=== PATIENT | female | born 1975 | race Caucasian/White ===

== ENCOUNTER → 2016-09-02 | Outpatient (CLI) | payer OTHER ==
--- NOTE | 2016-09-02 08:42 | XR ---
EXAMINATION TYPE: XR chest 2V DATE OF EXAM: 09/02/2016 8:38 AM COMPARISON: NONE TECHNIQUE: PA and lateral views submitted. HISTORY: Cough, pneumonia FINDINGS: The lungs are clear and there is no pneumothorax, pleural effusion, or focal pneumonia. IMPRESSION: 1. No acute process.
== END | disposition home or self-care (01) ==
LOC: RADXRMAIN 08:28
PROVIDERS: ATTEND Family Medicine
DX: J18.1 Lobar pneumonia, unspecified organism (principal)
CPT/HCPCS: 71020

== ENCOUNTER → 2016-10-10 | Outpatient (CLI) | payer OTHER ==
[2016-10-10 12:13] LABS: ALT 34 U/L (9-52); AST 44 U/L (14-36); Cholesterol 192 mg/dL (<200); Creatine Kinase 71 U/L (30-135); HDL Cholesterol 37 mg/dL (40-60); Triglycerides 345 mg/dL (<150)
== END | disposition home or self-care (01) ==
LOC: LABWHC1 11:21
PROVIDERS: ATTEND Nurse Practitioner Family
DX: E78.2 Mixed hyperlipidemia (principal)
CPT/HCPCS: 36415; 80061; 82550; 84450; 84460

== ENCOUNTER → 2017-01-30 | Outpatient (CLI) | payer OTHER | LOC: LABWHC1 09:10 | PROVIDERS: ATTEND Internal Medicine Endocrinology, Diabetes & Metabolism | DX: C73 Malignant neoplasm of thyroid gland (principal); E89.0 Postprocedural hypothyroidism | CPT/HCPCS: 36415; 84432; 84443; 86800 ==

== ENCOUNTER → 2017-04-11 | Outpatient (CLI) | payer OTHER ==
[2017-04-11 10:16] LABS: Basophils % (A) 0 %; CH 28.5; CHCM 31.8; Eosinophils # (A) 0.2 k/uL (0-0.7); Eosinophils % (A) 2 %; HCT 42.4 % (34.0-46.0); HDW 2.44; HGB 13.7 gm/dL (11.4-16.0); Luc # (Auto) 0.13; Luc % (Auto) 2; Lymphocytes # (A) 2.8 k/uL (1.0-4.8); Lymphocytes % (A) 31 %; MCH 29.1 pg (25.0-35.0); MCHC 32.2 g/dL (31.0-37.0); MCV 90.4 fL (80.0-100.0); Mean Platelet Volume 7.4; Monocytes # (A) 0.3 k/uL (0-1.0); Monocytes % (A) 3 %; Neutrophils # (A) 5.4 k/uL (1.3-7.7); Neutrophils % (A) 62 %; RDW 13.9 % (11.5-15.5); WBC 8.8 k/uL (3.8-10.6); WBC (Perox) 9.06
[2017-04-11 10:42] LABS: ALT 33 U/L (9-52); AST 37 U/L (14-36); Alkaline Phosphatase 90 U/L (38-126); Anion Gap 12 mmol/L; Blood Urea Nitrogen 11 mg/dL (7-17); Calcium 9.5 mg/dL (8.4-10.2); Carbon Dioxide 25 mmol/L (22-30); Chloride 104 mmol/L (98-107); Cholesterol 140 mg/dL (<200); Glucose 95 mg/dL (74-99); HDL Cholesterol 38 mg/dL (40-60); Non-African American GFR(MDRD) >60 (>60 ml/min/1.73 sqM); Potassium 4.9 mmol/L (3.5-5.1); Sodium 141 mmol/L (137-145); Total Bilirubin 0.5 mg/dL (0.2-1.3); Total Protein 7.4 g/dL (6.3-8.2)
== END | disposition home or self-care (01) ==
LOC: LABWHC1 09:19
PROVIDERS: ATTEND Nurse Practitioner Family
DX: E78.2 Mixed hyperlipidemia (principal); I10 Essential (primary) hypertension
CPT/HCPCS: 36415; 80053; 80061; 85025

== ENCOUNTER → 2017-04-28 | Outpatient (CLI) | payer OTHER ==
--- NOTE | 2017-04-28 14:36 | US ---
EXAMINATION TYPE: US thyroid st tissue head/neck DATE OF EXAM: 04/28/2017 COMPARISON: NONE CLINICAL HISTORY: C73 Malignant neoplasm of thyroid gland. Patient states having thyroid cancer in 20 08, complete thyroidectomy GLAND SIZE: Right Lobe: Surgically absent Left Lobe: Surgically absent Isthmus Thickness: Surgically absent Bilateral neck scanned, no evidence of lymphadenopathy. No abnormality identified IMPRESSION: No residual thyroid tissue or adenopathy appreciated.
== END ==
LOC: RADUSWWP 13:30
PROVIDERS: ATTEND Internal Medicine Endocrinology, Diabetes & Metabolism
DX: C73 Malignant neoplasm of thyroid gland (principal)
CPT/HCPCS: 76536

== ENCOUNTER → 2017-05-13 | Outpatient (CLI) | payer OTHER | END | disposition home or self-care (01) | LOC: LABWHC1 08:25 | PROVIDERS: ATTEND Internal Medicine Endocrinology, Diabetes & Metabolism | DX: C73 Malignant neoplasm of thyroid gland (principal) | CPT/HCPCS: 36415; 84443 ==

== ENCOUNTER → 2017-07-03 | Outpatient (CLI) | payer OTHER | END | disposition home or self-care (01) | LOC: LABWHC1 08:51 | PROVIDERS: ATTEND Internal Medicine Endocrinology, Diabetes & Metabolism | DX: C73 Malignant neoplasm of thyroid gland (principal) | CPT/HCPCS: 36415; 84443 ==

== ENCOUNTER → 2017-08-20 | Outpatient (CLI) | payer OTHER ==
--- NOTE | 2017-08-21 13:50 | MM ---
Reason for exam: screening (asymptomatic). Last mammogram was performed 1 year and 3 months ago. History: Patient history of other cancer. Family history of breast cancer in mother at age 58. Taking hormonal contraceptives for 18 years. Physical Findings: A clinical breast exam by your physician is recommended on an annual basis and results should be correlated with mammographic findings. MG Screening Mammo w CAD Bilateral CC and MLO view(s) were taken. Prior study comparison: May 24, 2016, bilateral MG screening mammo w CAD. May 23, 2015, bilateral MG screening mammo w CAD. The breast tissue is almost entirely fat. No significant changes when compared with prior studies. ASSESSMENT: Negative, BI-RAD 1 RECOMMENDATION: Routine screening mammogram of both breasts in 1 year.
== END | disposition home or self-care (01) ==
LOC: RADMAMWWP 08:55
PROVIDERS: ATTEND Obstetrics & Gynecology
DX: Z12.31 Encounter for screening mammogram for malignant neoplasm of breast (principal); Z80.3 Family history of malignant neoplasm of breast
CPT/HCPCS: 77067

== ENCOUNTER → 2017-10-06 | Outpatient (CLI) | payer OTHER ==
[2017-10-06 18:17] LABS: Thyroglobulin <0.20 ng/mL (1.60-59.90)
== END ==
LOC: LABWHC1 09:11
PROVIDERS: ATTEND Internal Medicine Endocrinology, Diabetes & Metabolism
DX: C73 Malignant neoplasm of thyroid gland (principal)
CPT/HCPCS: 36415; 84432; 84443; 86800

== ENCOUNTER → 2017-10-16 | Outpatient (CLI) | payer OTHER ==
--- NOTE | 2017-10-16 10:55 | ECHOF ---
Referral Reason:I10 Hypertention,R01.1 Murmur,R07.9 Chest pain MEASUREMENTS -------- HEIGHT: 167.6 cm WEIGHT: 105.2 kg BP: 145/82 RVIDd: 2.6 cm (< 3.3) IVSd: 0.8 cm (0.6 - 1.1) LVIDd: 4.8 cm (3.9 - 5.3) LVPWd: 1.0 cm (0.6 - 1.1) IVSs: 1.4 cm LVIDs: 3.1 cm LVPWs: 1.3 cm LAESV Index (A-L): 22.68 ml/m Ao Diam: 2.7 cm (2.0 - 3.7) AV Cusp: 1.3 cm (1.5 - 2.6) LA Diam: 3.0 cm (2.7 - 3.8) MV EXCURSION: 10.325 mm (> 18.000) MV EF SLOPE: 95 mm/s (70 - 150) EPSS: 0.8 cm MV E Baron: 0.80 m/s MV DecT: 397 ms MV A Baron: 1.04 m/s MV E/A Ratio: 0.78 RAP: 5.00 mmHg RVSP: 10.74 mmHg FINDINGS -------- Sinus rhythm. This was a technically adequate study. The left ventricular size is normal. Left ventricular wall thickness is normal. Overall left vent ricular systolic function is normal with, an EF between 55 - 60 %. The right ventricle is normal in size and function. Normal LA size by volume 22+/-6 ml/m2. The right atrium is normal in size. The aortic valve is trileaflet, and appears structurally normal. No aortic stenosis or regurgitation. The mitral valve is normal. There is trace to mild mitral regurgitation. Trace tricuspid regurgitation present. Right ventricular systolic pressure is normal at < 35 mmHg. There is no evidence of pulmonary hypertension. The pulmonic valve is normal. The aortic root size is normal. Normal inferior vena cava with normal inspiratory collapse consistent with estimated right atrial pre ssure of 5 mmHg. There is no pericardial effusion. CONCLUSIONS -------- 1. Sinus rhythm. 2. This was a technically adequate study. 3. The left ventricular size is normal. 4. Left ventricular wall thickness is normal. 5. Overall left ventricular systolic function is normal with, an EF between 55 - 60 %. 6. Normal LA size by volume 22+/-6 ml/m2. 7. The aortic valve is trileaflet, and appears structurally normal. No aortic stenosis or regurgitati on. 8. There is trace to mild mitral regurgitation. 9. Trace tricuspid regurgitation present. 10. Right ventricular systolic pressure is normal at < 35 mmHg. 11. There is no evidence of pulmonary hypertension. 12. The aortic root size is normal. 13. There is no pericardial effusion. GRAINING OPERATOR: Milan Dent RDCS
== END | disposition home or self-care (01) ==
LOC: RADECHMAIN 08:18 → MERGE 08:30
PROVIDERS: ATTEND Family Medicine
DX: R01.1 Cardiac murmur, unspecified (principal); I10 Essential (primary) hypertension; R07.9 Chest pain, unspecified
CPT/HCPCS: 93306

== ENCOUNTER 2018-01-13 05:17 | Emergency (ER) | payer OTHER ==
[2018-01-13 05:23] VITALS: RESP 18
[2018-01-13 05:56] LABS: Basophils % (A) 0 %; Eosinophils # (A) 0.1 k/uL (0-0.7); Eosinophils % (A) 1 %; HCT 42.8 % (34.0-46.0); HGB 14.3 gm/dL (11.4-16.0); Lymphocytes # (A) 1.7 k/uL (1.0-4.8); Lymphocytes % (A) 10 %; MCH 28.4 pg (25.0-35.0); MCHC 33.5 g/dL (31.0-37.0); MCV 84.9 fL (80.0-100.0); Mean Platelet Volume 7.4; Monocytes # (A) 0.5 k/uL (0-1.0); Monocytes % (A) 3 %; Neutrophils # (A) 14.9 k/uL (1.3-7.7); Neutrophils % (A) 86 %; Platelet Count 302 k/uL (150-450); RBC 5.04 m/uL (3.80-5.40); RDW 13.9 % (11.5-15.5); WBC 17.3 k/uL (3.8-10.6)
[2018-01-13] MEDS ORDERED: SODIUM CHLORIDE 0.9% 500 ML IV ONE (06:08)
[2018-01-13] MEDS ORDERED: SODIUM CHLORIDE 0.9% 1,000 ML IV ONE (06:08)
[2018-01-13] MEDS ORDERED: DICYCLOMINE 20 MG TAB PO STA (06:08)
[2018-01-13] MEDS ORDERED: ONDANSETRON 4 MG/2 ML VIAL IVP STA (06:09)
[2018-01-13 06:10] LABS: ALT 23 U/L (9-52); AST 28 U/L (14-36); Albumin 4.3 g/dL (3.5-5.0); Alkaline Phosphatase 99 U/L (38-126); Amylase 41 U/L (30-110); Anion Gap 16 mmol/L; Blood Urea Nitrogen 12 mg/dL (7-17); Carbon Dioxide 19 mmol/L (22-30); Chloride 106 mmol/L (98-107); Glucose 134 mg/dL (74-99); Lipase 124 U/L (23-300); Potassium 4.3 mmol/L (3.5-5.1); Sodium 141 mmol/L (137-145); Total Bilirubin 0.5 mg/dL (0.2-1.3); Total Protein 7.1 g/dL (6.3-8.2)
--- NOTE | 2018-01-13 06:47 | ED ---
Abdominal Pain HPI - General Chief Complaint: Abdominal Pain Stated Complaint: Abdominal Pain Time Seen by Provider: 01/13/18 06:01 Source: patient Mode of arrival: ambulatory Limitations: no limitations - History of Present Illness Initial Comments: 42-year-old female presents emergency Department chief complaint abdominal pain , diarrhea that started at 11 PM last night. Patient states she's had 6-7 episodes of diarrhea she states that his been blood and mucus. Patient denies any no fever or chills. She has no history of history of diverticulitis or colitis. Patient does have history of IBS. Patient has no dysuria no hematuria and no urinary frequency. Patient states she did have some episodes of nausea and vomiting. Patient has no current chest pain, shortness breath, headache, dizziness, back pain, flank pain. - Related Data Home Medications Medication Instructions Recorded Confirmed Levothyroxine Sodium [Synthroid] 100 mcg PO BID 02/21/16 02/21/16 Lisinopril [Prinivil] 20 mg PO DAILY 02/21/16 02/21/16 Diclofenac Sodium [Voltaren] 50 mg PO BID 01/13/18 01/13/18 Dicyclomine [Bentyl] 10 mg PO QID 01/13/18 01/13/18 Orsythia 1 tab PO DAILY 01/13/18 01/13/18 PARoxetine HCL [Paxil] 30 mg PO DAILY 01/13/18 01/13/18 Previous Rx's Medication Instructions Recorded Ciprofloxacin HCl [Cipro] 500 mg PO Q12HR #20 tablet 01/13/18 Ondansetron Odt [Zofran Odt] 4 mg PO Q8HR PRN #10 tab 01/13/18 metroNIDAZOLE [Flagyl] 500 mg PO TID #30 tab 01/13/18 Allergies Allergy/AdvReac Type Severity Reaction Status Date / Time No Known Allergies Allergy Verified 01/13/18 08:00 Review of Systems ROS Statement: Those systems with pertinent positive or pertinent negative responses have been documented in the HPI. ROS Other: All systems not noted in ROS Statement are negative. Past Medical History Past Medical History: Cancer, Hyperlipidemia, Hypertension, Thyroid Disorder Additional Past Medical History / Comment(s): Anxiety, History of Any Multi-Drug Resistant Organisms: None Reported Additional Past Surgical History / Comment(s): thyroidectomy, carpal tunnel. Past Psychological History: No Psychological Hx Reported Smoking Status: Never smoker Past Alcohol Use History: None Reported Past Drug Use History: None Reported General Exam Limitations: no limitations General appearance: alert, in no apparent distress Head exam: Present: atraumatic, normocephalic, normal inspection Respiratory exam: Present: normal lung sounds bilaterally. Absent: respiratory distress, wheezes, rales, rhonchi, stridor Cardiovascular Exam: Present: regular rate, normal rhythm, normal heart sounds. Absent: systolic murmur, diastolic murmur, rubs, gallop, clicks GI/Abdominal exam: Present: soft, tenderness (Moderate epigastric and left lower quadrant tenderness), normal bowel sounds. Absent: distended, guarding, rebound, rigid Back exam: Absent: CVA tenderness (R), CVA tenderness (L) Course Vital Signs 01/13/18 05:18 Temperature 98.1 F Pulse Rate 82 Respiratory 18 Rate Blood Pressure 123/80 O2 Sat by Pulse 95 Oximetry - Reevaluation(s) Reevaluation #1: 01/13/18 08:01 Patient was updated on lab results and reevaluated. Patient has improved after antiemetics and fluids. Medical Decision Making - Medical Decision Making 42-year-old female presented for abdominal pain, diarrhea. Patient's found to have enterocolitis on CT consider infectious versus inflammatory. Patient will be treated for infectious colitis with Cipro Flagyl. Patient will be advised to follow clear liquid diet and progress as tolerated and to follow with Dr. Kaba. Return parameters were discussed. agrees to plan - Lab Data Result diagrams: 01/13/18 05:38 01/13/18 05:38 Lab Results 01/13/18 01/13/18 01/13/18 Range/Units 04:47 04:47 05:38 WBC (3.8-10.6) k/uL RBC (3.80-5.40) m/uL Hgb (11.4-16.0) gm/dL Hct (34.0-46.0) % MCV (80.0-100.0) fL MCH (25.0-35.0) pg MCHC (31.0-37.0) g/dL RDW (11.5-15.5) % Plt Count (150-450) k/uL Neutrophils % % Lymphocytes % % Monocytes % % Eosinophils % % Basophils % % Neutrophils # (1.3-7.7) k/uL Lymphocytes # (1.0-4.8) k/uL Monocytes # (0-1.0) k/uL Eosinophils # (0-0.7) k/uL Basophils # (0-0.2) k/uL Sodium 141 (137-145) mmol/L Potassium 4.3 (3.5-5.1) mmol/L Chloride 106 (98-107) mmol/L Carbon Dioxide 19 L (22-30) mmol/L Anion Gap 16 mmol/L BUN 12 (7-17) mg/dL Creatinine 0.70 (0.52-1.04) mg/dL Est GFR (CKD-EPI)AfAm >90 (>60 ml/min/1.73 sqM) Est GFR (CKD-EPI)NonAf >90 (>60 ml/min/1.73 sqM) Glucose 134 H (74-99) mg/dL Plasma Lactic Acid Raphael (0.7-2.0) mmol/L Calcium 9.0 (8.4-10.2) mg/dL Total Bilirubin 0.5 (0.2-1.3) mg/dL AST 28 (14-36) U/L ALT 23 (9-52) U/L Alkaline Phosphatase 99 (38-126) U/L Total Protein 7.1 (6.3-8.2) g/dL Albumin 4.3 (3.5-5.0) g/dL Amylase 41 (30-110) U/L Lipase 124 (23-300) U/L Urine Color Yellow Urine Appearance Clear (Clear) Urine pH 6.0 (5.0-8.0) Ur Specific [place] 1.024 (1.001-1.035) Urine Protein 1+ H (Negative) Urine Glucose (UA) Negative (Negative) Urine Ketones Negative (Negative) Urine Blood Negative (Negative) Urine Nitrite Negative (Negative) Urine Bilirubin Negative (Negative) Urine Urobilinogen <2.0 (<2.0) mg/dL Ur Leukocyte Esterase Trace H (Negative) Urine RBC 5 (0-5) /hpf Urine WBC 3 (0-5) /hpf Ur Squamous Epith Cells 1 (0-4) /hpf Urine Mucus Few H (None) /hpf Urine HCG, Qual Not Detected (Not Detectd) Stool Occult Blood (Negative) C. difficile (EIA) Intrp (Negative) Blood Type Blood Type Recheck Antibody Screen Spec Expiration Date 01/13/18 01/13/18 01/13/18 Range/Units 05:38 05:38 05:38 WBC 17.3 H (3.8-10.6) k/uL RBC 5.04 (3.80-5.40) m/uL Hgb 14.3 (11.4-16.0) gm/dL Hct 42.8 (34.0-46.0) % MCV 84.9 (80.0-100.0) fL MCH 28.4 (25.0-35.0) pg MCHC 33.5 (31.0-37.0) g/dL RDW 13.9 (11.5-15.5) % Plt Count 302 (150-450) k/uL Neutrophils % 86 % Lymphocytes % 10 % Monocytes % 3 % Eosinophils % 1 % Basophils % 0 % Neutrophils # 14.9 H (1.3-7.7) k/uL Lymphocytes # 1.7 (1.0-4.8) k/uL Monocytes # 0.5 (0-1.0) k/uL Eosinophils # 0.1 (0-0.7) k/uL Basophils # 0.0 (0-0.2) k/uL Sodium (137-145) mmol/L Potassium (3.5-5.1) mmol/L Chloride (98-107) mmol/L Carbon Dioxide (22-30) mmol/L Anion Gap mmol/L BUN (7-17) mg/dL Creatinine (0.52-1.04) mg/dL Est GFR (CKD-EPI)AfAm (>60 ml/min/1.73 sqM) Est GFR (CKD-EPI)NonAf (>60 ml/min/1.73 sqM) Glucose (74-99) mg/dL Plasma Lactic Acid Raphael 2.2 H* (0.7-2.0) mmol/L Calcium (8.4-10.2) mg/dL Total Bilirubin (0.2-1.3) mg/dL AST (14-36) U/L ALT (9-52) U/L Alkaline Phosphatase (38-126) U/L Total Protein (6.3-8.2) g/dL Albumin (3.5-5.0) g/dL Amylase (30-110) U/L Lipase (23-300) U/L Urine Color Urine Appearance (Clear) Urine pH (5.0-8.0) Ur Specific [place] (1.001-1.035) Urine Protein (Negative) Urine Glucose (UA) (Negative) Urine Ketones (Negative) Urine Blood (Negative) Urine Nitrite (Negative) Urine Bilirubin (Negative) Urine Urobilinogen (<2.0) mg/dL Ur Leukocyte Esterase (Negative) Urine RBC (0-5) /hpf Urine WBC (0-5) /hpf Ur Squamous Epith Cells (0-4) /hpf Urine Mucus (None) /hpf Urine HCG, Qual (Not Detectd) Stool Occult Blood Positive H (Negative) C. difficile (EIA) Intrp (Negative) Blood Type Blood Type Recheck Antibody Screen Spec Expiration Date 01/13/18 01/13/18 Range/Units 05:38 05:41 WBC (3.8-10.6) k/uL RBC (3.80-5.40) m/uL Hgb (11.4-16.0) gm/dL Hct (34.0-46.0) % MCV (80.0-100.0) fL MCH (25.0-35.0) pg MCHC (31.0-37.0) g/dL RDW (11.5-15.5) % Plt Count (150-450) k/uL Neutrophils % % Lymphocytes % % Monocytes % % Eosinophils % % Basophils % % Neutrophils # (1.3-7.7) k/uL Lymphocytes # (1.0-4.8) k/uL Monocytes # (0-1.0) k/uL Eosinophils # (0-0.7) k/uL Basophils # (0-0.2) k/uL Sodium (137-145) mmol/L Potassium (3.5-5.1) mmol/L Chloride (98-107) mmol/L Carbon Dioxide (22-30) mmol/L Anion Gap mmol/L BUN (7-17) mg/dL Creatinine (0.52-1.04) mg/dL Est GFR (CKD-EPI)AfAm (>60 ml/min/1.73 sqM) Est GFR (CKD-EPI)NonAf (>60 ml/min/1.73 sqM) Glucose (74-99) mg/dL Plasma Lactic Acid Raphael (0.7-2.0) mmol/L Calcium (8.4-10.2) mg/dL Total Bilirubin (0.2-1.3) mg/dL AST (14-36) U/L ALT (9-52) U/L Alkaline Phosphatase (38-126) U/L Total Protein (6.3-8.2) g/dL Albumin (3.5-5.0) g/dL Amylase (30-110) U/L Lipase (23-300) U/L Urine Color Urine Appearance (Clear) Urine pH (5.0-8.0) Ur Specific [place] (1.001-1.035) Urine Protein (Negative) Urine Glucose (UA) (Negative) Urine Ketones (Negative) Urine Blood (Negative) Urine Nitrite (Negative) Urine Bilirubin (Negative) Urine Urobilinogen (<2.0) mg/dL Ur Leukocyte Esterase (Negative) Urine RBC (0-5) /hpf Urine WBC (0-5) /hpf Ur Squamous Epith Cells (0-4) /hpf Urine Mucus (None) /hpf Urine HCG, Qual (Not Detectd) Stool Occult Blood (Negative) C. difficile (EIA) Intrp Negative (Negative) Blood Type B Positive Blood Type Recheck No Antibody Screen NEGATIVE Spec Expiration Date 01/16/20182337 Disposition Clinical Impression: Enterocolitis, Diarrhea Disposition: HOME SELF-CARE Condition: Stable Instructions: Colitis (ED) Additional Instructions: Please return to the Emergency Department if symptoms worsen or any other concerns. Prescriptions: Ciprofloxacin HCl [Cipro] 500 mg PO Q12HR #20 tablet metroNIDAZOLE [Flagyl] 500 mg PO TID #30 tab Ondansetron Odt [Zofran Odt] 4 mg PO Q8HR PRN #10 tab PRN Reason: Nausea Is patient prescribed a controlled substance at d/c from ED?: No Referrals: Anne Zaman MD [Primary Care Provider] - 1-2 days Osmel Kaba MD [STAFF PHYSICIAN] - 1-2 days Time of Disposition: 08:03
[2018-01-13 07:07] LABS: Appearance,Urine Clear (Clear); Bilirubin,Urine Negative (Negative); Blood,Urine Negative (Negative); Color,Urine Yellow; Glucose,Urine (UA) Negative (Negative); Ketones,Urine Negative (Negative); Leukocyte Esterase,Urine Trace (Negative); Mucus,Urine Few /hpf; Nitrite,Urine Negative (Negative); Protein,Urine 1+ (Negative); RBC,Urine 5 /hpf (0-5); Specific Gravity,Urine 1.024 (1.001-1.035); Squamous Epithelial Cell,Urine 1 /hpf (0-4); Urobilinogen,Urine <2.0 mg/dL (<2.0); WBC,Urine 3 /hpf (0-5)
--- NOTE | 2018-01-13 07:44 | CT ---
EXAMINATION TYPE: CT abdomen pelvis w con DATE OF EXAM: 01/13/2018 HISTORY: Abdominal pain not further specified per order. History of thyroid cancer with pain and bloo dy diarrhea per patient. CT DLP: 2724.7mGycm Automated Exposure Control for Dose Reduction was Utilized. CONTRAST: CT scan of the abdomen and pelvis is performed without oral but with IV Contrast, patient injected wi th 100 mL of Isovue 300. COMPARISON: None FINDINGS: LUNG BASES: No significant abnormality is appreciated. LIVER/GB: No significant abnormality is appreciated. PANCREAS: No significant abnormality is seen. SPLEEN: Spleen is mildly enlarged at 13.6 cm coronal image 57. ADRENALS: No significant abnormality is seen. KIDNEYS: No significant abnormality is seen. BOWEL: No evaluation bowel is suboptimal secondary to lack of enteric contrast. There is no suspicio us small or large bowel dilatation. Mild wall thickening in small bowel loops is felt present. Slight ly prominent fluid-filled small bowel loops in the mid abdomen are identified. There is mild vasa eng orgement seen best coronal image 33 for reference. Mild wall thickening transverse and left colon is felt present. UTERUS/ADNEXA: Anteverted uterus is present. Along right uterine fundus there is heterogeneous enhanc ing well-defined lesion bulging uterine contour measuring approximately 7.3 x 6.5 cm axial image 74 f elt to reflect subserosal fibroid. Tiny amount of adjacent fluid near uterine fundus is present. Left ovary is normal in size coronal image 46. Right ovary is not well-visualized. No adnexal lesions are present. LYMPH NODES: No greater than 1cm abdominal or pelvic lymph nodes are appreciated. OSSEOUS STRUCTURES: Transitional-type vertebra lumbosacral junction is noted. OTHER: No significant additional abnormality is seen. IMPRESSION: Suboptimal study without enteric contrast. No bowel obstruction is present. Possible or p robable acute mild enterocolitis. Differential includes infectious and inflammatory etiologies.
[2018-01-13] MEDS ORDERED: CIPROFLOXACIN HCL 500 MG TAB PO STA (08:03)
[2018-01-13] MEDS ORDERED: metroNIDAZOLE 500 MG TAB PO STA (08:03)
[2018-01-13 08:13] VITALS: BP 126/73; PULSE 89; TEMP 99.2
== END 2018-01-13 08:17 | disposition home or self-care (01) ==
LOC: EC 05:17
DX: K52.9 Noninfective gastroenteritis and colitis, unspecified (principal); I10 Essential (primary) hypertension; E07.9 Disorder of thyroid, unspecified; F41.9 Anxiety disorder, unspecified; Z85.9 Personal history of malignant neoplasm, unspecified; Z87.19 Personal history of other diseases of the digestive system; Z79.1 Long term (current) use of non-steroidal anti-inflammatories (NSAID); Z79.899 Other long term (current) drug therapy
CPT/HCPCS: 36415; 86900; 86901; 80053; 82150; 83605; 83690; 85025; 86850; 82272; 81001; 81025; 87324; 87045; 87046; 74177; 99284; 96374; 96361 ×2; J2405; Q9967

== ENCOUNTER 2018-02-16 09:45 | Day surgery (SDC) | payer OTHER ==
[2018-02-12 10:06] VITALS: BMI 36.1
[~2018-02-16 09:45] MED LIST: LACTATED RINGERS 1,000 ML IV SCH; LIDOCAINE 1% 20 ML VIAL (10MG/ML) FOR IV START INTRADERMA PRN
[2018-02-16 10:05] VITALS: RESP 16; TEMP 98.1
[2018-02-16] MEDS ORDERED: fentaNYL (PF) 50 MCG/ML 2 ML AMP ONE ×2 (11:10)
[2018-02-16] MEDS ORDERED: LIDOCAINE 1% INJ 10MG/ML (20 ML MDV) ONE ×2 (11:10)
[2018-02-16] MEDS ORDERED: MIDAZOLAM 2 MG/2 ML VIAL ONE ×2 (11:10)
[2018-02-16] MEDS ORDERED: PROPOFOL 10 MG/ML 20 ML VIAL IV ONE ×2 (11:10)
--- NOTE | 2018-02-16 12:03 | P.PCN ---
Date of Procedure: 02/16/18 Procedure(s) Performed: Procedures: 1. Esophagogastroduodenoscopy and biopsy. 2. Colonoscopy and biopsy. Preoperative diagnosis: Gastroesophageal reflux and possible colitis. Postoperative diagnosis: 1. Small sliding hiatal hernia with low-grade distal esophagitis. 2. Mild gastritis. 3. Biopsies obtained from the duodenum, antrum and esophagus. 4. Nonspecific colitis, consistent with resolving infectious colitis. 5. Biopsies obtained from the right colon sigmoid and a prominent sigmoid fold. Preparation: HalfLytely prep. Sedation: Was provided by anesthesia. Brief clinical history: The patient is a 42-year-old female who I have evaluated in the office last month regarding an illness which consisted of abdominal pain, diarrhea with blood and mucus. The patient was in the emergency room for that on January 13. CT of the abdomen without contrast was suboptimal and showed thickening in the colon and small bowel consistent with enterocolitis. The patient gave history of colitis in her paternal aunt. Maternal grandfather may have had colon cancer. Procedure: With the patient on her left lateral decubitus position and after informed consent and adequate sedation, I passed the Olympus-GIF 160 video upper endoscope through the cricopharyngeus down the esophagus. GE junction was around 38 cm from the incisors and there was a small sliding hiatal hernia and low-grade distal esophagitis but no evidence of complicated reflux disease. The endoscope was then passed into the stomach which was insufflated with air and inspected in detail including the retroflex view in the cardia. There was some mottling and erythema in the antrum but no ulcers or erosions. Pyloric channel, duodenal bulb, post bulbar area and descending duodenum appeared within normal limits. I obtained biopsies from the duodenum, antrum and esophagus then the endoscope was withdrawn and I proceeded with the colonoscopy. Perianal area did not show any fissures or fistulas. There were no masses felt on digital rectal examination. The Olympus CFQ 160L video colonoscope was then inserted in the rectum in the usual fashion and advanced to the cecum. I was not able to intubate the ileocecal valve. The distal sigmoid and rectum showed nonspecific changes with erythema, edema and few scattered aphthous-like ulcerations. There was a prominent fold within the distal sigmoid taking the shape of a polyp. There was no ulcers, tumors or spontaneous bleeding. I obtained biopsies from the right colon and sigmoid as well as from the prominent sigmoid fold just mentioned. I then retroflexed the endoscope in the rectum before the endoscope was withdrawn. The patient tolerated the procedure well. Plan: The patient was reassured. Will await biopsy results. We will make further plans based on her course and biopsy results. I will keep you updated on her progress.
[2018-02-16 12:05] VITALS: BP 121/76; PULSE 78
== END 2018-02-16 12:38 | disposition home or self-care (01) ==
LOC: ORWHC2ENDO 09:45
DX: K29.50 Unspecified chronic gastritis without bleeding (principal); K20.0 Eosinophilic esophagitis; K63.89 Other specified diseases of intestine; K44.9 Diaphragmatic hernia without obstruction or gangrene; K52.9 Noninfective gastroenteritis and colitis, unspecified; I10 Essential (primary) hypertension; E78.5 Hyperlipidemia, unspecified; Z85.850 Personal history of malignant neoplasm of thyroid; E89.0 Postprocedural hypothyroidism; F32.9 Major depressive disorder, single episode, unspecified; F41.9 Anxiety disorder, unspecified; Z79.3 Long term (current) use of hormonal contraceptives; Z79.890 Hormone replacement therapy; Z79.899 Other long term (current) drug therapy
CPT/HCPCS: 81025; 88305; 45380; 43239; J2250; J2001; J3010; J2704

== ENCOUNTER → 2018-04-24 | Outpatient (CLI) | payer OTHER ==
[2018-04-24 19:15] LABS: Thyroglobulin <0.20 ng/mL (1.60-59.90)
== END | disposition home or self-care (01) ==
LOC: LABWHC1 09:47
PROVIDERS: ATTEND Internal Medicine Endocrinology, Diabetes & Metabolism
DX: C73 Malignant neoplasm of thyroid gland (principal)
CPT/HCPCS: 36415; 84432; 84443; 86800

== ENCOUNTER → 2018-08-19 | Outpatient (CLI) | payer OTHER ==
[2018-08-19 10:29] LABS: HCT 42.6 % (34.0-46.0); HGB 13.8 gm/dL (11.4-16.0); MCH 28.6 pg (25.0-35.0); MCHC 32.3 g/dL (31.0-37.0); MCV 88.5 fL (80.0-100.0); Mean Platelet Volume 7.4; Platelet Count 296 k/uL (150-450); RBC 4.82 m/uL (3.80-5.40); RDW 13.9 % (11.5-15.5); WBC 8.2 k/uL (3.8-10.6)
[2018-08-19 15:59] LABS: Anion Gap 8.8 mmol/L (4.00-12.00); Calcium 9.5 mg/dL (8.7-10.3); Carbon Dioxide 26.2 mmol/L (21.6-31.8); Potassium 4.8 mmol/L (3.5-5.5)
[2018-08-19 17:32] LABS: Thyroglobulin <0.20 ng/mL (1.60-59.90)
== END ==
LOC: LABWHC1 08:55
PROVIDERS: ATTEND Internal Medicine Endocrinology, Diabetes & Metabolism
DX: C73 Malignant neoplasm of thyroid gland (principal); R25.1 Tremor, unspecified
CPT/HCPCS: 36415; 80048; 82607; 83735; 84432; 84443; 85027; 86800

== ENCOUNTER → 2018-08-19 | Outpatient (CLI) | payer OTHER ==
--- NOTE | 2018-08-19 10:03 | US ---
EXAMINATION TYPE: US thyroid st tissue head/neck DATE OF EXAM: 08/19/2018 COMPARISON: NONE CLINICAL HISTORY: C73 NEOPLASM OF THYROID GLAND. Thyroid gland removed in 2007 GLAND SIZE: Right Lobe: Surgically absent Left Lobe: Surgically absent Isthmus Thickness: Surgically absent Bilateral neck scanned, no evidence of lymphadenopathy. No prominent masses or lesions visualized in thyroid fossa. IMPRESSION: Postoperative changes of total thyroidectomy.
== END | disposition home or self-care (01) ==
LOC: RADUSWWP 09:22
PROVIDERS: ATTEND Internal Medicine Endocrinology, Diabetes & Metabolism
DX: E89.0 Postprocedural hypothyroidism (principal)
CPT/HCPCS: 76536

== ENCOUNTER → 2018-09-10 | Outpatient (CLI) | payer OTHER ==
--- NOTE | 2018-09-11 10:06 | MM ---
Reason for exam: screening (asymptomatic). Last mammogram was performed 1 year and 1 month ago. History: Patient has history of other cancer at age 32. Family history of breast cancer in mother at age 58. Taking hormonal contraceptives for 19 years. Physical Findings: A clinical breast exam by your physician is recommended on an annual basis and results should be correlated with mammographic findings. MG Screening Mammo w CAD Bilateral CC and MLO view(s) were taken. Prior study comparison: August 20, 2017, bilateral MG screening mammo w CAD. May 24, 2016, bilateral MG screening mammo w CAD. There are scattered fibroglandular densities. No suspicious abnormality. No significant changes when compared with prior studies. ASSESSMENT: Negative, BI-RAD 1 RECOMMENDATION: Routine screening mammogram of both breasts in 1 year.
== END | disposition home or self-care (01) ==
LOC: RADMAMWWP 08:31
PROVIDERS: ATTEND Obstetrics & Gynecology
DX: Z12.31 Encounter for screening mammogram for malignant neoplasm of breast (principal); Z80.3 Family history of malignant neoplasm of breast
CPT/HCPCS: 77067

== ENCOUNTER → 2018-12-18 | Outpatient (CLI) | payer OTHER ==
--- NOTE | 2018-12-18 09:53 | CT ---
EXAMINATION TYPE: CT iac w con DATE OF EXAM: 12/18/2018 COMPARISON: None HISTORY: 43-year-old female bilateral ear pain, Middle ear mass CT DLP: 197 mGycm Automated exposure control for dose reduction was used. TECHNIQUE: Contiguous high-resolution axial scanning of the temporal bones performed with IV Contras t, patient injected with 100 mL of Isovue 300. Coronal reformatted images obtained. FINDINGS: There is no abnormality of visualized intracranial structures. There is no cerebellopontine angle mass identified by CT. External auditory canals are clear. The middle ear cavities and mastoid air cells are well pneumatized. There is no abnormality of middle ear ossicles. The round and oval windows are normal. There is no abnormality of bony labyrinths. The cochlear and vestibular aqueducts are well visualized. The facial nerve canal is normal bilaterally. No evidence for dehiscence of the superior semicircular canal. The internal auditory canal and meati are symmetrical bilaterally. The adjacent dural venous sinuses appear patent. There is no evidence of fractures. Trace mucosal thickening along the floor the right maxillary sinus. Reformatted images confirm above findings. IMPRESSION: No temporal bone mass is identified. Unremarkable temporal bone CT.
== END | disposition home or self-care (01) ==
LOC: RADCTMAIN 08:42
PROVIDERS: ATTEND Otolaryngology
DX: H92.02 Otalgia, left ear (principal); H74.92 Unspecified disorder of left middle ear and mastoid
CPT/HCPCS: 70481; Q9967

== ENCOUNTER → 2019-02-12 | Outpatient (CLI) | payer OTHER | END | disposition home or self-care (01) | LOC: LABWHC1 08:24 | PROVIDERS: ATTEND Internal Medicine Endocrinology, Diabetes & Metabolism | DX: C73 Malignant neoplasm of thyroid gland (principal) | CPT/HCPCS: 36415; 84432; 84443; 86800 ==

== ENCOUNTER → 2019-04-21 | Outpatient (CLI) | payer OTHER ==
[2019-04-21 09:23] LABS: Basophils % (A) 0 %; Eosinophils # (A) 0.1 k/uL (0-0.7); Eosinophils % (A) 1 %; HCT 38.7 % (34.0-46.0); Lymphocytes # (A) 2.7 k/uL (1.0-4.8); Lymphocytes % (A) 33 %; MCH 29.7 pg (25.0-35.0); MCHC 33.7 g/dL (31.0-37.0); MCV 88.3 fL (80.0-100.0); Mean Platelet Volume 6.4; Monocytes # (A) 0.2 k/uL (0-1.0); Monocytes % (A) 3 %; Neutrophils % (A) 61 %; Platelet Count 310 k/uL (150-450); RBC 4.39 m/uL (3.80-5.40); RDW 13.2 % (11.5-15.5); WBC 8.1 k/uL (3.8-10.6)
[2019-04-21 16:20] LABS: African American GFR (CKD) 90.8 (60.0-200.0); Albumin 4.4 g/dL (3.80-4.90); Albumin/Globulin Ratio 2.1 (1.60-3.17); Anion Gap 9.7 mmol/L (4.00-12.00); BUN/Creat Ratio 13.33 Ratio (12.00-20.00); Bilirubin, Conjugated 0.2 mg/dL (0.20-0.40); Bilirubin,Unconjugated 0.3 mg/dL; Calcium 8.9 mg/dL (8.7-10.3); Carbon Dioxide 24.3 mmol/L (21.6-31.8); Globulin 2.1 g/dL (1.6-3.3); Potassium 4.3 mmol/L (3.5-5.5); Total Bilirubin 0.5 mg/dL (0.2-1.2); Total Protein 6.5 g/dL (6.2-8.2)
== END ==
LOC: LABWHC1 08:59
PROVIDERS: ATTEND Psychiatry & Neurology Psychiatry
DX: F33.1 Major depressive disorder, recurrent, moderate (principal)
CPT/HCPCS: 36415; 80053; 82248; 82306; 85025

== ENCOUNTER → 2019-08-20 | Outpatient (CLI) | payer OTHER | END | disposition home or self-care (01) | LOC: LABWHC1 11:05 | PROVIDERS: ATTEND Internal Medicine Endocrinology, Diabetes & Metabolism | DX: C73 Malignant neoplasm of thyroid gland (principal) | CPT/HCPCS: 36415; 84432; 84443; 86800 ==

== ENCOUNTER → 2019-12-14 | Outpatient (CLI) | payer OTHER ==
--- NOTE | 2019-12-16 08:19 | MM ---
Reason for exam: screening (asymptomatic). Last mammogram was performed 1 year and 3 months ago. History: Patient has history of other cancer at age 32. Family history of breast cancer in mother at age 58. Taking hormonal contraceptives for 19 years beginning at age 18. Physical Findings: A clinical breast exam by your physician is recommended on an annual basis and results should be correlated with mammographic findings. MG Screening Mammo w CAD Bilateral CC and MLO view(s) were taken. XCCL view(s) were taken of the right breast. Prior study comparison: September 10, 2018, bilateral MG screening mammo w CAD. August 20, 2017, bilateral MG screening mammo w CAD. There are scattered fibroglandular densities. Benign appearing calcifications in the left breast. No significant changes when compared with prior studies. ASSESSMENT: Benign, BI-RAD 2 RECOMMENDATION: Routine screening mammogram of both breasts in 1 year.
== END | disposition home or self-care (01) ==
LOC: RADMAMWWP 14:39
PROVIDERS: ATTEND Obstetrics & Gynecology
DX: Z12.31 Encounter for screening mammogram for malignant neoplasm of breast (principal)
CPT/HCPCS: 77067

== ENCOUNTER → 2020-02-01 | Outpatient (CLI) | payer OTHER ==
--- NOTE | 2020-02-01 14:17 | EST ---
EXERCISE STRESS AGE: 44 SEX: F HT: 67" WT: 210 lbs. PROTOCOL: David STAGE: 3 DURATION OF EXERCISE: 8:00 HEART RATE REST: 109 BLOOD PRESSURE REST: 124/76 MAXIMUM HEART RATE ACHIEVED: 156 MAXIMUM BLOOD PRESSURE: 148/69 85% MPHR: 150 100% MPHR: 176 METS: 9.7 INDICATIONS: Chest pain. CLINICAL INFORMATION: Baseline EKG revealed normal sinus rhythm without significant ST-T changes. Patient walked on standard David protocol for 8 minutes, achieved a maximal heart rate of 156 beats per minute, developed fatigue, shortness of breath but did not have angina. There was no arrhythmia. By EKG criteria this was a negative stress test with fair exercise capacity. FINAL IMPRESSION: Fair exercise capacity with a negative stress test by EKG criteria. There was no angina, no arrhythmia and no EKG changes to indicate ischemia. MMKORI / LORN: [id number] /
== END ==
LOC: RADNMMAIN 10:40
PROVIDERS: ATTEND Family Medicine
DX: R07.89 Other chest pain (principal)
CPT/HCPCS: 93017

== ENCOUNTER → 2020-02-29 | Outpatient (CLI) | payer OTHER | END | disposition home or self-care (01) | LOC: LABWHC1 09:20 | PROVIDERS: ATTEND Internal Medicine Endocrinology, Diabetes & Metabolism | DX: C73 Malignant neoplasm of thyroid gland (principal) | CPT/HCPCS: 36415; 84432; 84443; 86800 ==

== ENCOUNTER → 2020-08-03 | Outpatient (CLI) | payer OTHER ==
--- NOTE | 2020-08-03 12:42 | US ---
EXAMINATION TYPE: US thyroid st tissue head/neck DATE OF EXAM: 08/03/2020 COMPARISON: 08/19/2018 CLINICAL HISTORY: 45-year-old female C73 Malignant neoplasm of thyroid gland. Routine F/U TECHNIQUE: Multiple sonographic images of the thyroid gland are obtained. FINDINGS: GLAND SIZE: Right Lobe: Surgically absent Left Lobe: Surgically absent Isthmus Thickness: Surgically absent Insole Taper notes: Bilateral neck scanned, no evidence of lymphadenopathy. Normal thyroidectomy neck, similar to previous US. IMPRESSION: No abnormal soft tissue identified within the thyroidectomy bed.
== END | disposition home or self-care (01) ==
LOC: RADUSWWP 10:07
PROVIDERS: ATTEND Internal Medicine Endocrinology, Diabetes & Metabolism
DX: C73 Malignant neoplasm of thyroid gland (principal)
CPT/HCPCS: 76536

== ENCOUNTER → 2020-09-07 | Outpatient (CLI) | payer OTHER | END | disposition home or self-care (01) | LOC: LABWHC1 09:30 | PROVIDERS: ATTEND Internal Medicine Endocrinology, Diabetes & Metabolism | DX: C73 Malignant neoplasm of thyroid gland (principal) | CPT/HCPCS: 36415; 84432; 84443; 86800 ==

== ENCOUNTER → 2020-12-14 | Outpatient (CLI) | payer OTHER ==
--- NOTE | 2020-12-20 11:10 | MM ---
Reason for exam: screening (asymptomatic). Last mammogram was performed 1 year ago. History: Patient has history of other cancer at age 32. Family history of breast cancer in mother at age 58. Taking hormonal contraceptives for 19 years beginning at age 18. Physical Findings: A clinical breast exam by your physician is recommended on an annual basis and results should be correlated with mammographic findings. MG 3D Screening Mammo W/Cad Bilateral CC and MLO view(s) were taken. Prior study comparison: December 14, 2019, bilateral MG screening mammo w CAD. September 10, 2018, bilateral MG screening mammo w CAD. There are scattered fibroglandular densities. No significant changes when compared with prior studies. ASSESSMENT: Negative, BI-RAD 1 RECOMMENDATION: Routine screening mammogram of both breasts in 1 year. Manage on a clinical basis with regard to right breast pain.
== END | disposition home or self-care (01) ==
LOC: RADMAMWWP 08:56
PROVIDERS: ATTEND Obstetrics & Gynecology
DX: Z12.31 Encounter for screening mammogram for malignant neoplasm of breast (principal); Z80.3 Family history of malignant neoplasm of breast
CPT/HCPCS: 77063; 77067

== ENCOUNTER → 2021-02-02 | Outpatient (CLI) | payer OTHER ==
[2021-02-02 18:40] LABS: HCT 42.2 % (37.2-46.3); HGB 13.3 g/dL (12.0-15.0); MCH 28.8 pg (27.0-32.0); MCHC 31.5 g/dL (32.0-37.0); MCV 91.3 fL (80.0-97.0); Mean Platelet Volume 10.8 fL (9.5-12.2); Platelet Count 304 X 10*3/uL (140-440); RBC 4.62 X 10*6/uL (4.10-5.20); RDW 13.6 % (11.5-14.5)
[2021-02-03 02:37] LABS: Prolactin 3.2 ng/mL (2.8-29.2)
[2021-02-03 02:38] LABS: Luteinizing Hormone 7.1 mIU/mL
[2021-02-03 02:39] LABS: Follicle Stimulating Hormone 25.6 mIU/mL
[2021-02-03 03:27] LABS: Estradiol <11.8 pg/mL
[2021-02-03 03:28] LABS: Progesterone 0.4 ng/mL
== END | disposition home or self-care (01) ==
LOC: LABWHC1 11:33
PROVIDERS: ATTEND Obstetrics & Gynecology
DX: Z13.29 Encounter for screening for other suspected endocrine disorder (principal); N93.8 Other specified abnormal uterine and vaginal bleeding
CPT/HCPCS: 36415; 82670; 83001; 83002; 84144; 84146; 84439; 84443; 84479; 85027

== ENCOUNTER → 2021-03-16 | Outpatient (CLI) | payer OTHER ==
--- NOTE | 2021-03-16 15:33 | US ---
EXAMINATION TYPE: US pelvis complete transvag DATE OF EXAM: 03/16/2021 COMPARISON: US 05/04/2015 CLINICAL HISTORY: N93.8 Dysfunctional uterine bleeding. TECHNIQUE: Transvaginal (TV) and Transabdominal (TA) . Transabdominal sonographic images of the pel vis were acquired. Transvaginal sonographic images were medically necessary to better assess the fol lowing anatomy: ovaries Date of LMP: 02/28/2021 EXAM MEASUREMENTS: Uterus: 9.0 x 6.6 x 9.3 cm Endometrial Stripe: 0.6 cm Right Ovary: 2.3 x 2.0 x 2.0 cm Left Ovary: not identified cm 1. Uterus: Anteverted large posterior fibroid measures 6.5 x 5.4 x 7.2 cm 2. Endometrium: wnl 3. Right Ovary: wnl 4. Left Ovary: not identified. 5. Bilateral Adnexa: wnl 6. Posterior cul-de-sac: no free fluid Large fibroid makes imaging difficult. IMPRESSION: Leiomyomatous changes noted.
== END | disposition home or self-care (01) ==
LOC: RADUSWWP 14:46
PROVIDERS: ATTEND Obstetrics & Gynecology
DX: D25.9 Leiomyoma of uterus, unspecified (principal)
CPT/HCPCS: 76830; 76856

== ENCOUNTER → 2021-04-18 | Outpatient (CLI) | payer OTHER | END | disposition home or self-care (01) | LOC: LABWHC1 09:54 | PROVIDERS: ATTEND Internal Medicine Endocrinology, Diabetes & Metabolism | DX: C73 Malignant neoplasm of thyroid gland (principal) | CPT/HCPCS: 36415; 84432; 84443; 86800 ==

== ENCOUNTER → 2021-06-13 | Outpatient (CLI) | payer OTHER | END | disposition home or self-care (01) | LOC: LABPAT 11:52 | PROVIDERS: ATTEND Obstetrics & Gynecology | DX: Z53.9 Procedure and treatment not carried out, unspecified reason (principal) ==

== ENCOUNTER 2021-06-21 05:42 | Observation (INO) | payer OTHER ==
[2021-06-13 13:02] LABS: Basophils % (A) 0 %; Eosinophils # (A) 0.1 k/uL (0-0.7); Eosinophils % (A) 1 %; HCT 41.8 % (34.0-46.0); HGB 13.5 gm/dL (11.4-16.0); Lymphocytes # (A) 2.4 k/uL (1.0-4.8); Lymphocytes % (A) 25 %; MCH 29.6 pg (25.0-35.0); MCHC 32.3 g/dL (31.0-37.0); MCV 91.6 fL (80.0-100.0); Mean Platelet Volume 8.2; Monocytes # (A) 0.3 k/uL (0-1.0); Monocytes % (A) 3 %; Neutrophils % (A) 71 %; Platelet Count 288 k/uL (150-450); RBC 4.56 m/uL (3.80-5.40); RDW 13.4 % (11.5-15.5); WBC 9.9 k/uL (3.8-10.6)
[2021-06-13 13:17] LABS: Calcium 9.7 mg/dL (8.4-10.2); Potassium 4.7 mmol/L (3.5-5.1)
[2021-06-18 09:41] VITALS: BMI 34.7
--- NOTE | 2021-06-20 17:21 | P.HPOB ---
History of Present Illness H&P Date: 06/20/21 Chief Complaint: Fiber uterus Litzy is a 46-year-old female with a large approximately 6 any fibroid uterus and the posterior uterus. It is uncomfortable and she finds that it is painful and due to the size and pressure she would like it removed. She is scheduled for a robotic-assisted laparoscopic hysterectomy with bilateral salpingectomy possible EDDIE and possible BSO. Risks/benefits/alternatives reviewed with the patient in detail and all questions were answered for her prior to proceeding to the operative room. She is aware with this large size of this uterus. There is a possibility we would have to open to be able to manage it as he could bleed or could be too large to safely removed laparoscopically. Symptoms have been present for a number of months and they seem to be worsening. Risks/benefits included but not are not limited to bleeding and infection, damage to bladder or bowel, vascular injuries, nerve injuries, ureteral injuries potential need for further surgery as well as anesthetic risks. Past Medical History Past Medical History: Cancer, Hyperlipidemia, Hypertension, Thyroid Disorder Additional Past Medical History / Comment(s): COLITIS, HX HEART MURMUR, HX THYROID CA, RADIATION 2007, LARGE UTERINE FIBROID History of Any Multi-Drug Resistant Organisms: None Reported Past Surgical History: Orthopedic Surgery Additional Past Surgical History / Comment(s): thyroidectomy, carpal tunnel RT, COLONOSCOPY, Past Anesthesia/Blood Transfusion Reactions: No Reported Reaction Smoking Status: Never smoker - Past Family History Mother Family Medical History: Cancer Additional Family Medical History / Comment(s): BREAST Father Family Medical History: Deep Vein Thrombosis (DVT) Medications and Allergies Home Medications Medication Instructions Recorded Confirmed Type Levonorgestrel-Ethin Estradiol 1 tab PO DAILY 06/18/21 06/18/21 History [Levora-28 Tablet] Levothyroxine Sodium [Synthroid] 175 mcg PO DAILY 06/18/21 06/18/21 History Losartan Potassium 100 mg PO DAILY 06/18/21 06/18/21 History Pravastatin Sodium [Pravachol] 10 mg PO HS 06/18/21 06/18/21 History Sertraline [Zoloft] 100 mg PO DAILY 06/18/21 06/18/21 History buPROPion HCL [buPROPion HCL SR] 150 mg PO DAILY 06/18/21 06/18/21 History traZODone HCL 50 mg PO HS 06/18/21 06/18/21 History Allergies Allergy/AdvReac Type Severity Reaction Status Date / Time No Known Allergies Allergy Verified 06/18/21 09:25 Exam Osteopathic Statement: *. No significant issues noted on an osteopathic structural exam other than those noted in the History and Physical/Consult. - OBG Physical Exam Breast: both: normal (no masses) Abdomen: bowel sounds normal, no diffuse tenderness, no bruit present, no guarding noted, no hepatomegaly, no splenomegaly, no mass Vulva: both: normal Vagina: normal moisture, no discharge Cervix: no lesion, no discharge Uterus: Fullness and posterior vagina due to fibroid Uterus: normal size, enlarged, normal contour Adnexa: both: normal Anus/Rectum: normal perianal skin, no rectal mass, no hemorrhoids, heme negative Results Result Diagrams: 06/13/21 12:09 06/13/21 12:09
[~2021-06-21 05:42] MED LIST changes: +DEXAMETHASONE SOD PHOSPHATE 4 MG/ML 1 ML VIAL IV ONE; +LIDOCAINE 1% (10MG/ML) FOR IV START INTRADERMA PRN; -LIDOCAINE 1% 20 ML VIAL (10MG/ML) FOR IV START INTRADERMA PRN; +MIDAZOLAM 2 MG/2 ML VIAL IV PRN; +ONDANSETRON 4 MG/2 ML VIAL IVP ONE
[2021-06-21] MEDS ORDERED: SCOPOLAMINE 1.5MG/72HR PATCH TRANSDERM ONE (06:31)
[2021-06-21] MEDS ORDERED: HYDROmorphone 0.5 MG/0.5 ML SYRINGE IVP PRN (07:00)
[2021-06-21] MEDS ORDERED: PROPOFOL 10 MG/ML 20 ML VIAL IV ONE (07:20)
[2021-06-21] MEDS ORDERED: KETAMINE 10 MG/ML 20 ML VIAL ONE (07:20)
[2021-06-21] MEDS ORDERED: NEOSTIGMINE 1 MG/ML 10 ML VIAL ONE (07:20)
[2021-06-21] MEDS ORDERED: PHENYLEPHRINE-0.9% NACL SYG 1,000 MCG/10 ML SYRINGE ONE (07:20)
[2021-06-21] MEDS ORDERED: MIDAZOLAM 2 MG/2 ML VIAL ONE (07:20)
[2021-06-21] MEDS ORDERED: GLYCOPYRROLATE 0.2 MG/ML 2 ML VIAL ONE (07:20)
[2021-06-21] MEDS ORDERED: fentaNYL (PF) 50 MCG/ML 2 ML AMP ONE (07:20)
[2021-06-21] MEDS ORDERED: ROCURONIUM 10 MG/ML (5 ML VIAL) IV ONE (07:20)
[2021-06-21] MEDS ORDERED: SUCCINYLCHOLINE CHLORIDE 100 MG/5 ML SYR IV ONE (07:20)
[2021-06-21] MEDS ORDERED: LIDOCAINE 1% INJ 10MG/ML (20 ML MDV) ONE (07:20)
[2021-06-21] MEDS ORDERED: BUPIVACAIN-EPI 0.5%-1:200,000 30 ML VIAL SQ ONE (08:20)
[2021-06-21] MEDS ORDERED: BUPIVACAINE (PF) 0.25% 30 ML VIAL SQ ONE (08:20)
[2021-06-21] MEDS ORDERED: BUPIVACAINE (PF) 0.5% 30 ML VIAL SQ ONE ×2 (08:20)
[2021-06-21] MEDS ORDERED: LACTATED RINGERS 1,000 ML IV ONE (08:57)
[2021-06-21] MEDS ORDERED: SIMETHICONE 80 MG CHEWABLE PO PRN (09:14)
[2021-06-21] MEDS ORDERED: ONDANSETRON 4 MG/2 ML VIAL IVP PRN (09:14)
--- NOTE | 2021-06-21 09:23 | P.OP ---
Date of Procedure: 06/21/21 Preoperative Diagnosis: Fibroid uterus Postoperative Diagnosis: Same Procedure(s) Performed: Robotic-assisted laparoscopic hysterectomy with bilateral salpingectomy Anesthesia: XUAN Surgeon: Nelson Godinez Laundry Aid #1: Dorothy Barajas Estimated Blood Loss (ml): 50 IV fluids (ml): 1,000 Urine output (ml): 50 Pathology: other (Uterus, cervix and fallopian tubes) Condition: stable Disposition: floor Operative Findings: Pathology pending. Very large posterior lateral fibroid Description of Procedure: Litzy was taken to the operating suite where he general anesthetic was found be adequate. She was prepped and draped in normal sterile fashion and placed in dorsal lithotomy position. Initially a weighted speculum was inserted in vagina and anterior lip of cervix identified and grasped with an Allis clamp. Cervix was then dilated and uterus sounded to 10 cm. Cup size was 3 cm. Sutures were placed at 3 and 9 to assist in traction. Yoon manipulator was then inserted without difficulty and maximal Ascent was measured. This was completed Cortez cath was placed instruments were removed from vagina. Attention was then turned to the abdominal portion procedure and gloves were changed. Initially 2 mL of quarter percent Marcaine was injected 2 cm superior to the umbilicus and through this an X anesthetic a 5 mm skin incision was made. Through this incision, under direct visualization with an optical trocar and sleeve the camera was inserted. Once camera was placed 2 lateral ports were placed 10 cm lateral to the umbilicus through 8 mm skin incisions and these were placed under direct visualization. Fourth port and sleeve was then inserted between the left lateral and the medial port and the camera port was exchanged for a robotic port. Robot was then brought in and docked. A [place] grasper and scissors were then placed. At this point I broke scrub and went to the console. Uterus was elevated and tipped the right-hand side with very large posterior lateral fibroid noted. Initially the right fallopian tube was identified cauterized to the mesosalpinx and removed. Once this was completed the utero-ovarian ligament was identified cauterized and transected. Moving through the mesosalpinx tissues to the round labor tissue was cauterized transected and then the round ligament was cauterized and transected. Anterior posterior leafs of the broad ligament were then fully developed moving inferiorly. Vascularity along the uterine border was then cauterized once this was completed and we're at the level bladder the bladder flap was identified and entered with Maryland and undermined with Maryland and then incised with scissors across face the uterus. Once this was completed bladder was fully developed out of the operative field and the cup was felt to be noted in the vagina. Once this was completed uterus was then tipped to the left side and the right side was similarly developed. Once this was fully completed verifying bladder was out of the operative field the balloon and the Yoon was blown up and entered anterior colpotomy was made. Once completed the cup was followed 3 and 60 and a counterclockwise fashion cheating head when necessary to maintain excellent hemostasis. Once this was completed the uterus was brought down into the vagina the uterus and fibroid uterus or fibroid rather and then the thyroid just removed separately with blunt dissection. Fiber was left in the vagina to maintain pneumoperitoneum. Once this was completed with excellent hemostasis noted across the pedicles the incidents were exchanged for a make suture cut and John grasper and the vaginal cuff was closed with to OB lock suture in a running fashion. Pelvis was then irrigated once pedicles were felt to be completely hemostatic all incidents removed gas was allowed to expel from the abdomen. 5 deep breaths were provided during this process. Patient was then tipped to a Trendelenburg of only 17% or degrees and Dr. Barajas close incisions on the abdomen subcuticularly and I did a concurrent cystoscopy with excellent flow noted from both ureteral jets. All incidents were then removed the remaining 8 mL of quarter percent Marcaine was injected around the incisions and patient was taken to the recovery room in stable and satisfactory condition.
[2021-06-21] MEDS: KETOROLAC 30 MG/ML 1 ML VIAL IVP PRN ×3 (10:41→23:40)
[2021-06-21] MEDS ORDERED: Acetaminophen-Codeine 300-30mg TAB PO PRN (14:11)
[2021-06-21] MEDS: Acetaminophen-Codeine 300-30mg TAB PO PRN ×2 (14:22→18:36)
[2021-06-21] MEDS: SENNOSIDES-DOCUSATE SODIUM 1 EACH TAB PO SCH (20:07)
[2021-06-21] MEDS ORDERED: PRAVASTATIN SODIUM 20 MG TAB PO SCH (21:00)
[2021-06-22] MEDS: Acetaminophen-Codeine 300-30mg TAB PO PRN ×4 (00:32→14:09)
[2021-06-22] MEDS ORDERED: LEVOTHYROXINE 75 MCG TAB PO SCH (06:30)
[2021-06-22] MEDS ORDERED: LEVOTHYROXINE 100 MCG TAB PO SCH (06:30)
[2021-06-22 08:01] VITALS: PULSE 76
--- NOTE | 2021-06-22 08:18 | P.PN ---
Progress Note - Text Progress Note Date: 06/22/21 Litzy is overall doing well this morning postop day 1 from a robotic-assisted laparoscopic hysterectomy with bilateral salpingectomy. She is able to void and she is tolerating her diet. Will plan continue care for now with expectation we will be able to discharge her later this morning or early this afternoon. She states that she feels like she is almost ready to go home but would like a little bit more time. Otherwise her vital signs are stable and afebrile. Heart is regular, lungs are clear, extremities are without pain. Abdomen soft in her incisions are intact. Bowel sounds are noted. We'll continue care for now. Assessment postop day 1. Plan continue care likely discharge home later today.
[2021-06-22 08:21] VITALS: BP 117/70; RESP 16; TEMP 98.7
[2021-06-22] MEDS: SENNOSIDES-DOCUSATE SODIUM 1 EACH TAB PO SCH (08:34)
[2021-06-22] MEDS ORDERED: LOSARTAN 50 MG TAB PO SCH (09:00)
[2021-06-22] MEDS ORDERED: SERTRALINE 100 MG TAB PO SCH (09:00)
[2021-06-22] MEDS ORDERED: buPROPion XL 150 MG TAB.ER.24H PO SCH (09:00)
--- NOTE | 2021-06-22 13:42 | P.DS ---
Providers Date of admission: 06/22/21 01:32 Expected date of discharge: 06/22/21 Attending physician: Nelson Godinez Primary care physician: Ray [facility] Course: Litzy is doing better this afternoon and is requesting discharge home. Her vital signs are still stable and she is afebrile. She voices no complaints this time and her physical exam is the same as this morning. We'll plan discharged home status post robotic-assisted laparoscopic hysterectomy yesterday and she will follow up with me in 1 week. Discharge rupture otherwise reviewed and all questions were answered for her prior to discharge. She is stable for discharge at this time. Prescription for Tylenol 3 and Motrin are forwarded to the pharmacy. Patient Condition at Discharge: Good Plan - Discharge Summary Discharge Rx Participant: Yes New Discharge Prescriptions: New Ibuprofen [Motrin] 600 mg PO Q6HR PRN #30 tab PRN Reason: Pain Acetaminophen-Codeine 300-30mg [Tylenol #3] 1 tab PO Q4H PRN #20 tablet PRN Reason: Pain No Action buPROPion HCL [buPROPion HCL SR] 150 mg PO DAILY Sertraline [Zoloft] 100 mg PO DAILY Pravastatin Sodium [Pravachol] 10 mg PO HS traZODone HCL 50 mg PO HS Levonorgestrel-Ethin Estradiol [Levora-28 Tablet] 1 tab PO DAILY Losartan Potassium 100 mg PO DAILY Levothyroxine Sodium [Synthroid] 175 mcg PO DAILY Discharge Medication List Levonorgestrel-Ethin Estradiol [Levora-28 Tablet] 1 tab PO DAILY 06/18/21 [History] Levothyroxine Sodium [Synthroid] 175 mcg PO DAILY 06/18/21 [History] Losartan Potassium 100 mg PO DAILY 06/18/21 [History] Pravastatin Sodium [Pravachol] 10 mg PO HS 06/18/21 [History] Sertraline [Zoloft] 100 mg PO DAILY 06/18/21 [History] buPROPion HCL [buPROPion HCL SR] 150 mg PO DAILY 06/18/21 [History] traZODone HCL 50 mg PO HS 06/18/21 [History] Acetaminophen-Codeine 300-30mg [Tylenol #3] 1 tab PO Q4H PRN #20 tablet 06/22/21 [Rx] Ibuprofen [Motrin] 600 mg PO Q6HR PRN #30 tab 06/22/21 [Rx] Follow up Appointment(s)/Referral(s): Nelson Godinez DO [Doctor of Osteopathic Medicine] - 1 Week Activity/Diet/Wound Care/Special Instructions: No heavy lifting, limit stairs and driving, and pelvic rest. If any high temperatures, heavy bleeding, or severe pain notify our office. No tub baths for 2 weeks but showering is fine. Discharge Disposition: HOME SELF-CARE
== END 2021-06-22 14:30 | disposition home or self-care (01) ==
LOC: OR 05:42 → 4FBP 09:12 → OR 06-22 01:32 → 4FBP 06-22 01:32
PROVIDERS: ADMIT Obstetrics & Gynecology; ATTEND Obstetrics & Gynecology
DX: D25.1 Intramural leiomyoma of uterus (principal); N80.0 Endometriosis of uterus; N92.0 Excessive and frequent menstruation with regular cycle; I10 Essential (primary) hypertension; E78.5 Hyperlipidemia, unspecified; E89.0 Postprocedural hypothyroidism; Z79.890 Hormone replacement therapy; Z79.3 Long term (current) use of hormonal contraceptives; Z79.899 Other long term (current) drug therapy; Z85.850 Personal history of malignant neoplasm of thyroid; Z92.3 Personal history of irradiation; Z87.19 Personal history of other diseases of the digestive system; Z98.890 Other specified postprocedural states; Z80.3 Family history of malignant neoplasm of breast; Z82.49 Family history of ischemic heart disease and other diseases of the circulatory system
CPT/HCPCS: 58573; S2900; 80048; 81025; 85025; 86850; 86900; 86901; 87635; 88307

== ENCOUNTER → 2021-10-10 | Outpatient (CLI) | payer OTHER ==
--- NOTE | 2021-10-17 11:36 | HM ---
24 Hour Holter monitor note: Patient wore a Holter monitor for 24 hrs from 10/10/2021 until 10/11/2021. Findings: Patient's baseline heart rate was normal sinus rhythm. There were no signficant atrial fibrillation, atrial flutter, or ventricular tachycardia episodes. There were no significant pauses greater than 2 seconds. Patient's minimum heart rate was 69 bpm. Patient's maximum heart rate was 123 bpm. Patient's average heart rate was 89 bpm. There were not any SVT events or PVCs or PACs. There were a total of 8 patient activated events of dizziness and chest pain which corresponded with normal sinus rhythm. Conclusions: 24 hour Holter monitor showing only normal sinus rhythm with patient activated events of dizziness and chest pain corresponding with normal sinus rhythm. [facility]
== END | disposition home or self-care (01) ==
LOC: RADECHMAIN 07:24
PROVIDERS: ATTEND Family Medicine
DX: R42 Dizziness and giddiness (principal); R07.9 Chest pain, unspecified
CPT/HCPCS: 93225; 93226

== ENCOUNTER → 2022-01-31 | Outpatient (CLI) | payer OTHER | END | disposition home or self-care (01) | LOC: LABWHC1 10:01 | PROVIDERS: ATTEND Internal Medicine Endocrinology, Diabetes & Metabolism | DX: C73 Malignant neoplasm of thyroid gland (principal) | CPT/HCPCS: 36415; 84432; 84443; 86800 ==

== ENCOUNTER → 2022-05-15 | Outpatient (CLI) | payer OTHER ==
--- NOTE | 2022-05-15 13:03 | US ---
EXAMINATION TYPE: US transvaginal DATE OF EXAM: 05/15/2022 COMPARISON: Pelvic ultrasound March 16, 2021 CLINICAL HISTORY: R10.2 PELVIC PAIN N83.0 R ovarian cyst. Right pelvic pain for 2 months. Hysterecto my June 2021 TECHNIQUE: Transvaginal (TV). EXAM MEASUREMENTS: Uterus: Surgically absent Endometrial Stripe: Surgically absent Right Ovary: Not visualized Left Ovary: 2.9 x 2.2 x 1.8 cm 1. Uterus: Surgically absent 2. Endometrium: Surgically absent 3. Right Ovary: Obscured by overlying bowel gas 4. Left Ovary: Anechoic mass 2.2 x 1.8 x 1.4 cm with slight ovarian tissue visualized peripherally. 5. Bilateral Adnexa: wnl 6. Posterior cul-de-sac: wnl Uterus is now surgically absent. No free fluid. Right ovary not distinctly seen. Left ovary has 2.2 x 1.8 x 1.4 cm heterogeneous hypoechoic oval avascular lesion with increased through transmission with out solid component and smooth inner wall. IMPRESSION: No suspicious right adnexal mass. Right ovary not seen with certainty on today's study. There is O-RADS 2 lesion, almost certainly benign in the left ovary on current study.
== END | disposition home or self-care (01) ==
LOC: RADUSWWP 12:05
PROVIDERS: ATTEND Obstetrics & Gynecology
DX: R10.2 Pelvic and perineal pain (principal); N83.01 Follicular cyst of right ovary
CPT/HCPCS: 76830

== ENCOUNTER → 2022-05-17 | Outpatient (CLI) | payer OTHER ==
--- NOTE | 2022-05-20 19:28 | MM ---
Reason for Exam: Screening (asymptomatic). Last mammogram was performed 1 year(s) and 5 month(s) ago. Patient History: Menarche at age 12. First Full-Term at age 18. Hysterectomy at age 46. Other cancer, age 32. Hormonal Contraceptives, starting at age 18 for 19 years. Mother had breast cancer, age 58. Risk Values: Nora 5 year model risk: 1.6%. NCI Lifetime model risk: 16.7%. Prior Study Comparison: 09/10/2018 Bilateral Screening Mammogram, [facility]. 12/14/2019 Bilateral Screening Mammogram, [facility]. 12/14/2020 Bilateral Screening Mammogram, [facility]. Tissue Density: There are scattered fibroglandular densities. Findings: Analyzed By CAD. Chronic asymmetric density lateral posterior right cc view. There is no suspicious group of microcalcifications or new suspicious mass in either breast. Overall Assessment: Benign, BI-RAD 2 Management: Screening Mammogram of both breasts in 1 year. 1. Patient should continue monthly self breast exams. 2. A clinical breast exam by your physician is recommended on an annual basis. 3. This exam should not preclude additional follow-up of suspicious palpable abnormalities. Electronically signed and approved by: Lalito Winters M.D. Radiologist
== END | disposition home or self-care (01) ==
LOC: RADMAMWWP 15:10
PROVIDERS: ATTEND Obstetrics & Gynecology
DX: Z12.31 Encounter for screening mammogram for malignant neoplasm of breast (principal); Z80.3 Family history of malignant neoplasm of breast
CPT/HCPCS: 77063; 77067

== ENCOUNTER → 2022-08-07 | Outpatient (CLI) | payer OTHER ==
[2022-08-07 14:28] LABS: Basophils # (A) 0.04 X 10*3/uL (0.00-0.10); Basophils % (A) 0.5 %; Eosinophils % (A) 1.2 %; HCT 40.2 % (37.2-46.3); HGB 12.8 g/dL (12.0-15.0); Immature Grans, Automated 0.2 %; Lymphocytes # (A) 2.35 X 10*3/uL (0.90-5.00); MCH 28.6 pg (27.0-32.0); MCHC 31.8 g/dL (32.0-37.0); MCV 89.7 fL (80.0-97.0); Mean Platelet Volume 10.5 fL (9.5-12.2); Monocytes # (A) 0.42 X 10*3/uL (0.20-1.00); Monocytes % (A) 4.8 %; NRBC Per 100 WBC 0 /100 WBCS (0.0-0.0); Neutrophils # (A) 5.76 X 10*3/uL (1.80-7.70); Neutrophils % (A) 66.3 %; Platelet Count 237 X 10*3/uL (140-440); RBC 4.48 X 10*6/uL (4.10-5.20); RDW 13.2 % (11.5-14.5); WBC 8.69 X 10*3/uL (4.50-10.00)
[2022-08-07 16:35] LABS: Anion Gap 14.2 mmol/L (10.00-18.00); Carbon Dioxide 23.5 mmol/L (20.0-27.5); Potassium 4.3 mmol/L (3.5-5.5)
== END | disposition home or self-care (01) ==
LOC: LABWHC1 09:44
PROVIDERS: ATTEND Internal Medicine Endocrinology, Diabetes & Metabolism
DX: C73 Malignant neoplasm of thyroid gland (principal)
CPT/HCPCS: 36415; 80051; 84432; 84443; 85025; 86800

== ENCOUNTER → 2022-08-07 | Outpatient (CLI) | payer OTHER ==
--- NOTE | 2022-08-07 10:11 | US ---
EXAMINATION TYPE: US thyroid st tissue head/neck DATE OF EXAM: 08/07/2022 COMPARISON: NONE CLINICAL HISTORY: C73 MALIGNANT NEOPLASM OF THYROID GLAND. GLAND SIZE: Right Lobe: Surgically absent Left Lobe: Surgically absent Isthmus Thickness: Surgically absent Bilateral neck scanned, no evidence of lymphadenopathy. IMPRESSION: No residual thyroid tissue seen. No recurrent mass.
== END | disposition home or self-care (01) ==
LOC: RADUSWWP 08:58
PROVIDERS: ATTEND Internal Medicine Endocrinology, Diabetes & Metabolism
DX: C73 Malignant neoplasm of thyroid gland (principal)
CPT/HCPCS: 76536

== ENCOUNTER 2023-01-03 17:53 | Emergency (ER) | payer OTHER ==
[2023-01-03 18:02] VITALS: TEMP 98.9
--- NOTE | 2023-01-03 18:34 | XR ---
EXAMINATION TYPE: XR chest 2V DATE OF EXAM: 01/03/2023 COMPARISON: 09/02/16 HISTORY: Chest pain TECHNIQUE: Frontal and lateral views of the chest are obtained. FINDINGS: There is no focal air space opacity. No evidence for pneumothorax. No pleural effusion. The cardiac silhouette size is within normal limits. The osseous structures are grossly intact. IMPRESSION: 1. No acute cardiopulmonary process.
[2023-01-03 18:54] LABS: Basophils % (A) 0 %; Eosinophils # (A) 0.1 k/uL (0-0.7); Eosinophils % (A) 1 %; HCT 39.8 % (34.0-46.0); HGB 13.4 gm/dL (11.4-16.0); Lymphocytes # (A) 2.5 k/uL (1.0-4.8); Lymphocytes % (A) 27 %; MCH 29.7 pg (25.0-35.0); MCHC 33.5 g/dL (31.0-37.0); MCV 88.6 fL (80.0-100.0); Mean Platelet Volume 8.3; Monocytes # (A) 0.3 k/uL (0-1.0); Monocytes % (A) 3 %; Neutrophils # (A) 6.1 k/uL (1.3-7.7); Neutrophils % (A) 67 %; Platelet Count 229 k/uL (150-450); RBC 4.49 m/uL (3.80-5.40); RDW 13.2 % (11.5-15.5); WBC 9.1 k/uL (3.8-10.6)
[2023-01-03 18:58] LABS: Partial Thromboplastin Time 24.2 sec (22.0-30.0); Prothrombin Time 10.3 sec (9.0-12.0)
[2023-01-03 19:01] LABS: ALT 21 U/L (4-34); AST 37 U/L (14-36); African American GFR (CKD) >90 (>60 ml/min/1.73 sqM); Albumin 4.3 g/dL (3.5-5.0); Alkaline Phosphatase 99 U/L (38-126); Anion Gap 10 mmol/L; Blood Urea Nitrogen 11 mg/dL (7-17); Calcium 9.2 mg/dL (8.4-10.2); Carbon Dioxide 23 mmol/L (22-30); Chloride 107 mmol/L (98-107); Glucose 107 mg/dL (74-99); Magnesium 1.9 mg/dL (1.6-2.3); Non-African American GFR(CKD) >90 (>60 ml/min/1.73 sqM); Potassium 3.6 mmol/L (3.5-5.1); Sodium 140 mmol/L (137-145); Total Bilirubin 0.5 mg/dL (0.2-1.3); Total Protein 7.3 g/dL (6.3-8.2)
--- NOTE | 2023-01-03 19:59 | ED ---
Chest Pain HPI - General Chief Complaint: Chest Pain Stated Complaint: chest pain Time Seen by Provider: 01/03/23 18:06 Source: patient, family Mode of arrival: ambulatory - History of Present Illness Initial Comments: A 47-year-old woman past medical history significant for hypertension and hypercholesterolemia presents to the ED with a chief complaint of chest pain. Patient states yesterday onset of right-sided chest pain. Patient states that this presented at rest. This does not radiate. Patient states pain is worse on deep breath. Pain intermittent in nature. Today patient states onset of left- sided chest pain with no alleviating or aggravating factors, promting presentation to the ED. Associated shortness of breath. No nausea or vomiting. Denies family history of early cardiac . No other complaints. - Related Data Home Medications Medication Instructions Recorded Confirmed Levothyroxine Sodium [Synthroid] 175 mcg PO DAILY 06/18/21 01/03/23 traZODone HCL 50 mg PO HS 06/18/21 01/03/23 Atorvastatin [Lipitor] 10 mg PO DAILY 08/23/22 01/03/23 Ciclopirox Olamine [Loprox 0.77% 1 applic TOPICAL BID 01/03/23 01/03/23 cream] Losartan [Cozaar] 50 mg PO HS 01/03/23 01/03/23 Sertraline [Zoloft] 75 mg PO DAILY 01/03/23 01/03/23 Terbinafine [LamISIL] 250 mg PO DAILY 01/03/23 01/03/23 Vitamin D3(Unknown Dose) 1 tab PO DAILY 01/03/23 01/03/23 buPROPion XL [Wellbutrin XL] 150 mg PO DAILY 01/03/23 01/03/23 Allergies Allergy/AdvReac Type Severity Reaction Status Date / Time No Known Allergies Allergy Verified 01/03/23 21:23 Review of Systems ROS Statement: Those systems with pertinent positive or pertinent negative responses have been documented in the HPI. ROS Other: All systems not noted in ROS Statement are negative. Past Medical History Past Medical History: Cancer, Hyperlipidemia, Hypertension, Thyroid Disorder Additional Past Medical History / Comment(s): HX OF BLOOD IN STOOL, COLITIS, HX HEART MURMUR, HX THYROID CA, RADIATION 2007 History of Any Multi-Drug Resistant Organisms: None Reported Past Surgical History: No Surgical Hx Reported, Hysterectomy, Orthopedic Surgery Additional Past Surgical History / Comment(s): thyroidectomy, carpal tunnel RT Past Anesthesia/Blood Transfusion Reactions: No Reported Reaction Past Psychological History: Anxiety, Depression Smoking Status: Never smoker Past Alcohol Use History: Rare Past Drug Use History: None Reported - Past Family History Mother Family Medical History: Cancer Additional Family Medical History / Comment(s): BREAST Father Family Medical History: Diabetes Mellitus, Deep Vein Thrombosis (DVT) Additional Family Medical History / Comment(s): kidney failure General Exam Limitations: no limitations General appearance: alert, in no apparent distress Head exam: Present: atraumatic, normocephalic Eye exam: Present: normal appearance ENT exam: Present: normal exam Respiratory exam: Present: normal lung sounds bilaterally, other (Right-sided chest pain reproducible upon palpation of the right chest wall.) Cardiovascular Exam: Present: regular rate, normal rhythm GI/Abdominal exam: Present: soft (No Tenderness to palpation. No rebound guarding or rigidity.) Neurological exam: Present: alert, oriented X3 Psychiatric exam: Present: normal affect, normal mood Skin exam: Present: warm, dry Course Vital Signs 01/03/23 01/03/23 01/03/23 17:55 20:47 23:13 Temperature 98.9 F Pulse Rate 99 87 85 Respiratory 18 15 15 Rate Blood Pressure 125/78 121/77 118/72 O2 Sat by Pulse 98 96 96 Oximetry Chest Pain MDM - MDM Was pt. sent in by a medical professional or institution (JUAN JOSÉ Montalvo, AUTOMATIC PILOT MECHANIC, urgent care, hospital, or [place] health care facility...) When possible be specific @ -No Did you speak to anyone other than the patient for history (EMS, parent, family, police, friend...)? What history was obtained from this source @ -No Did you review nursing and triage notes (agree or disagree)? Why? @ -[I reviewed and agree with nursing and triage notes] Were old charts reviewed (outside hosp., previous admission, EMS record, old EKG, old radiological studies, urgent care reports/EKG's, [place] health care facility records)? Report findings @ -Old charts reviewed showing history of hypercholesterolemia. Differential Diagnosis (chest pain, altered mental status, abdominal pain women, abdominal pain men, vaginal bleeding, weakness, fever, dyspnea, syncope, headache, dizziness, GI bleed, back pain, seizure, CVA, palpatations, mental health, musculoskeletal)? @ -Differential Chest Pain: Stable Angina, Unstable Angina, STEMI, NSTEMI Aortic Dissection, Pneumothorax, Musculoskeletal, Esophageal Spasm GERD, Cholecystitis, Pancreatitis, Zoster, this is not meant to be an all-inclusive list. EKG interpreted by me (3pts min.). @ -EKG shows a sinus rhythm at 90 bpm with nonspecific T-wave changes. IN 140, QRS 94, QT/QTc 355/402. X-rays interpreted by me (1pt min.). @ -Chest x-ray shows no acute process CT interpreted by me (1pt min.). @ -None done U/S interpreted by me (1pt. min.). @ -None done What testing was considered but not performed or refused? (CT, X-rays, U/S, labs)? Why? @ -None What meds were considered but not given or refused? Why? @ -None Did you discuss the management of the patient with other professionals (professionals i.e. , PA, AUTOMATIC PILOT MECHANIC, lab, RT, psych nurse, home health care social worker, display associate, teacher, quality officer, insurance case manager)? Give summary @ -No Was smoking cessation discussed for >3mins.? @ -No Was critical care preformed (if so, how long)? @ -No Were there social determinants of health that impacted care today? How? (Homelessness, low income, unemployed, alcoholism, drug addiction, transportation, low edu. Level, literacy, decrease access to med. care, [facility], rehab)? @ -No Was there de-escalation of care discussed even if they declined (Discuss DNR or withdrawal of care, Hospice)? DNR status @ -No What co-morbidities impacted this encounter? (DM, HTN, Smoking, COPD, CAD, Cancer, CVA, ARF, Chemo, Hep., AIDS, mental health diagnosis, sleep apnea, morbid obesity)? @ -Hypercholesterolemia Was patient admitted / discharged? Hospital course, mention meds given and route, prescriptions, significant lab abnormalities, going to OR and other pertinent info. @ -Discharge. Chest x-ray showed no acute process. Laboratory studies unremarkable including serial troponins and d-dimer. Discussed observation stay with patient however at this time patient wishes to go home. Patient discharged in stable condition. Thoroughly discussed return precautions with patient who verbalizes agreement. Undiagnosed new problem with uncertain prognosis? @ -No Drug Therapy requiring intensive monitoring for toxicity (Heparin, Nitro, Insulin, Cardizem)? @ -No Were any procedures done? @ -No Diagnosis/symptom? @ -Chest pain Acute, or Chronic, or Acute on Chronic? @ -Acute Uncomplicated (without systemic symptoms) or Complicated (systemic symptoms)? @ -Uncomplicated Side effects of treatment? @ -No Exacerbation, Progression, or Severe Exacerbation? @ -No Poses a threat to life or bodily function? How? (Chest pain, [place], [place], pneumonia, PE, COPD, DKA, ARF, appy, cholecystitis, CVA, Diverticulitis, Homicidal, Suicidal, threat to staff... and all critical care pts) @ -Yes, chest pain rule out STEMI/NSTEMI Disposition Clinical Impression: Chest pain Disposition: HOME SELF-CARE Condition: Good Instructions (If sedation given, give patient instructions): Chest Pain (ED) Additional Instructions: Please return to the Emergency Department if symptoms worsen or any other concerns. Is patient prescribed a controlled substance at d/c from ED?: No Referrals: Juanjose Good MD [Primary Care Provider] - 1-2 days Decision Time: 22:40
[2023-01-03 20:49] VITALS: RESP 15
[2023-01-03 23:13] VITALS: BP 118/72; PULSE 85
== END 2023-01-03 23:15 | disposition home or self-care (01) ==
LOC: EC 17:53
DX: R07.89 Other chest pain (principal); I10 Essential (primary) hypertension; E78.00 Pure hypercholesterolemia, unspecified; E07.9 Disorder of thyroid, unspecified; F32.A Depression, unspecified; F41.9 Anxiety disorder, unspecified; Z79.890 Hormone replacement therapy; Z79.899 Other long term (current) drug therapy
CPT/HCPCS: 36415; 71046; 80053; 83735; 84484; 85025; 85379; 85610; 85730; 93005; 99285

== ENCOUNTER → 2023-03-04 | Outpatient (CLI) | payer OTHER | END | disposition home or self-care (01) | LOC: LABWHC1 15:28 | PROVIDERS: ATTEND Internal Medicine Endocrinology, Diabetes & Metabolism | DX: C73 Malignant neoplasm of thyroid gland (principal) | CPT/HCPCS: 36415; 84432; 84443; 86800 ==

== ENCOUNTER → 2023-07-11 | Outpatient (CLI) | payer OTHER ==
--- NOTE | 2023-07-11 13:27 | MM ---
Reason for Exam: Screening (asymptomatic). Last mammogram was performed 1 year(s) and 2 month(s) ago. Patient History: Menarche at age 12. First Full-Term at age 18. Hysterectomy at age 46. Other cancer, age 32. Hormonal Contraceptives, starting at age 18 for 19 years. Maternal aunt had breast cancer, age 56. Mother had breast cancer, age 58. Risk Values: Nora 5 year model risk: 1.7%. NCI Lifetime model risk: 16.5%. Prior Study Comparison: 12/14/2019 Bilateral Screening Mammogram, [facility]. 12/14/2020 Bilateral Screening Mammogram, [facility]. 05/17/2022 Bilateral MG 3D screening mammo w/cad, [facility]. Tissue Density: The breast tissue is almost entirely fat. Findings: Analyzed By CAD. There is no suspicious group of microcalcifications or new suspicious mass. Overall Assessment: Negative, BI-RAD 1 Management: Screening Mammogram of both breasts in [address] [facility] will attempt to contact patient to return for supplemental views and ultrasound if indicated. Patient should continue monthly self-breast exams. A clinical breast exam by your physician is recommended on an annual basis. This exam should not preclude additional follow-up of suspicious palpable abnormalities. Note on Nora scores and lifetime risk: 1. A Nora score greater than 3% is considered moderate risk. If this is the case, consider specialist referral to assess eligibility for a risk reducing agent. 2. If overall lifetime risk for the development of breast cancer is 20% or higher, the patient may qualify for future screening with alternating mammogram and breast MRI. Electronically signed and approved by: David Bowling DO
== END | disposition home or self-care (01) ==
LOC: RADMAMWWP 07:57
PROVIDERS: ATTEND Obstetrics & Gynecology
DX: Z12.31 Encounter for screening mammogram for malignant neoplasm of breast (principal); Z80.3 Family history of malignant neoplasm of breast
CPT/HCPCS: 77063; 77067

== ENCOUNTER → 2023-09-05 | Outpatient (CLI) | payer OTHER | END | disposition home or self-care (01) | LOC: LABWHC1 12:07 | PROVIDERS: ATTEND Internal Medicine Endocrinology, Diabetes & Metabolism | DX: C73 Malignant neoplasm of thyroid gland (principal) | CPT/HCPCS: 36415; 84432; 84443; 86800 ==

== ENCOUNTER 2024-02-13 09:15 | Day surgery (SDC) | payer OTHER ==
[~2024-02-13 09:15] MED LIST changes: -DEXAMETHASONE SOD PHOSPHATE 4 MG/ML 1 ML VIAL IV ONE; +LACTATED RINGERS 1,000 ML BAG ONE; -LACTATED RINGERS 1,000 ML IV SCH; -LIDOCAINE 1% (10MG/ML) FOR IV START INTRADERMA PRN; +LIDOCAINE 1% INJ 10MG/ML (20 ML MDV) ONE; -MIDAZOLAM 2 MG/2 ML VIAL IV PRN; -ONDANSETRON 4 MG/2 ML VIAL IVP ONE; +PROPOFOL 10 MG/ML 20 ML VIAL IV ONE
--- NOTE | 2024-03-05 17:14 | P.PCN ---
Date of Procedure: 02/13/24 Procedure(s) Performed: This an addendum to the procedure was performed on 02/13/2024 Procedure performed colonoscopy with snare polypectomy and biopsy Procedure: Scope was advanced into the cecum. Careful examination was performed. In the descending colon there was a 3 mm polyp that was removed by cold biopsy. In the sigmoid colon there was a 1 cm pedunculated polyp removed by snare polypectomy. Scattered sigmoid diverticulosis seen. Patient tolerated the procedure well.
== END 2024-02-13 10:57 ==
LOC: ORWHC2ENDO 09:15
PROVIDERS: ATTEND Internal Medicine Gastroenterology
DX: K92.1 Melena
CPT/HCPCS: 45380; 45385; 88305

== ENCOUNTER → 2024-03-09 | Outpatient (CLI) | payer OTHER | END | disposition home or self-care (01) | LOC: LABWHC1 10:38 | PROVIDERS: ATTEND Internal Medicine Endocrinology, Diabetes & Metabolism | DX: C73 Malignant neoplasm of thyroid gland (principal) | CPT/HCPCS: 36415; 84432; 84443; 86800 ==

== ENCOUNTER → 2024-03-09 | Outpatient (CLI) | payer OTHER ==
--- NOTE | 2024-03-09 10:48 | US ---
EXAMINATION TYPE: US thyroid st tissue head/neck DATE OF EXAM: 03/09/2024 COMPARISON: Multiple, most recent 08/07/2022 CLINICAL INDICATION: Female, 48 years old with history of C73 MALIG NEOPLASM OF THYROID GLAND; Thyroi dectomy; patient denies any changes from prior GLAND SIZE: Right Lobe: Surgically absent cm Overall Parenchyma: Left Lobe: Surgically absent cm Overall Parenchyma: Isthmus Thickness: Surgically absent cm Bilateral neck scanned, no evidence of lymphadenopathy. IMPRESSION: Surgically absent thyroid gland, No suspicious masses or organizing fluid collection. No lymphadenopa thy.
== END | disposition home or self-care (01) ==
LOC: RADUSWWP 09:57
PROVIDERS: ATTEND Internal Medicine Endocrinology, Diabetes & Metabolism
DX: C73 Malignant neoplasm of thyroid gland (principal)
CPT/HCPCS: 76536

== ENCOUNTER 2024-04-04 12:11 | Emergency (ER) | payer OTHER ==
[2024-04-04] MEDS: IBUPROFEN 600 MG TAB PO STA (13:36)
--- NOTE | 2024-04-04 13:46 | ED ---
Fall HPI - General Chief Complaint: Fall Stated Complaint: Fall-L shoulder/L knee injury Time Seen by Provider: 04/04/24 13:02 Source: patient Mode of arrival: ambulatory - History of Present Illness Initial Comments: 48-year-old female presenting with chief complaint of shoulder and knee pain. Patient slipped in the shower falling over mainly onto her right shoulder. She still has good range of motion but "just wanted to get checked out". She has full range of motion of the knee as well. Reports that the pain in the knee is minimal now. She is ambulatory. No loss of consciousness or blood thinners. - Related Data Home Medications Medication Instructions Recorded Confirmed Levothyroxine Sodium [Synthroid] 175 mcg PO DAILY 06/18/21 01/03/23 traZODone HCL 50 mg PO HS 06/18/21 01/03/23 Atorvastatin [Lipitor] 10 mg PO DAILY 08/23/22 01/03/23 Ciclopirox Olamine [Loprox 0.77% 1 applic TOPICAL BID 01/03/23 01/03/23 cream] Losartan [Cozaar] 50 mg PO HS 01/03/23 01/03/23 Sertraline [Zoloft] 75 mg PO DAILY 01/03/23 01/03/23 Terbinafine [LamISIL] 250 mg PO DAILY 01/03/23 01/03/23 Vitamin D3(Unknown Dose) 1 tab PO DAILY 01/03/23 01/03/23 buPROPion XL [Wellbutrin XL] 150 mg PO DAILY 01/03/23 01/03/23 Allergies Allergy/AdvReac Type Severity Reaction Status Date / Time No Known Allergies Allergy Verified 04/04/24 12:15 Review of Systems ROS Statement: Those systems with pertinent positive or pertinent negative responses have been documented in the HPI. ROS Other: All systems not noted in ROS Statement are negative. Past Medical History Past Medical History: Cancer, Hyperlipidemia, Hypertension, Thyroid Disorder Additional Past Medical History / Comment(s): HX OF BLOOD IN STOOL, COLITIS, HX HEART MURMUR, HX THYROID CA, RADIATION 2008 History of Any Multi-Drug Resistant Organisms: None Reported Past Surgical History: No Surgical Hx Reported, Hysterectomy, Orthopedic Surgery Additional Past Surgical History / Comment(s): thyroidectomy, carpal tunnel RT Past Anesthesia/Blood Transfusion Reactions: No Reported Reaction Past Psychological History: Anxiety, Depression Smoking Status: Never smoker Past Alcohol Use History: Rare Past Drug Use History: None Reported - Past Family History Mother Family Medical History: Cancer Additional Family Medical History / Comment(s): BREAST Father Family Medical History: Diabetes Mellitus, Deep Vein Thrombosis (DVT) Additional Family Medical History / Comment(s): kidney failure General Exam Limitations: no limitations General appearance: alert, in no apparent distress Head exam: Present: atraumatic, normocephalic Eye exam: Present: normal appearance, EOMI Neck exam: Present: normal inspection, full ROM. Absent: meningismus Respiratory exam: Present: normal lung sounds bilaterally. Absent: respiratory distress, wheezes, rales, rhonchi, stridor Cardiovascular Exam: Present: regular rate, normal rhythm, normal heart sounds. Absent: systolic murmur, diastolic murmur, rubs, gallop, clicks Left Shoulder Exam: Present: normal inspection, full ROM, tenderness. Absent: swelling, deformity Left Knee exam: Present: normal inspection, full ROM. Absent: tenderness, swelling Neurological exam: Present: alert, oriented X3 Psychiatric exam: Present: normal affect, normal mood Skin exam: Present: warm, dry, normal color Course Vital Signs 04/04/24 04/04/24 12:12 18:22 Temperature 98.6 F 98.4 F Pulse Rate 95 68 Respiratory 16 18 Rate Blood Pressure 147/86 97/61 O2 Sat by Pulse 96 100 Oximetry Medical Decision Making - Medical Decision Making Was pt. sent in by a medical professional or institution (JUAN JOSÉ Montalvo, ROUTE DELIVERY MANAGER, urgent care, hospital, or group home...) When possible be specific @ -No Did you speak to anyone other than the patient for history (EMS, parent, family, police, friend...)? What history was obtained from this source @ -No Did you review nursing and triage notes (agree or disagree)? Why? @ -I reviewed and agree with nursing and triage notes Were old charts reviewed (outside hosp., previous admission, EMS record, old EKG, old radiological studies, urgent care reports/EKG's, group home records)? Report findings @ -No old charts were reviewed Differential Diagnosis (chest pain, altered mental status, abdominal pain women, abdominal pain men, vaginal bleeding, weakness, fever, dyspnea, syncope, headache, dizziness, GI bleed, back pain, seizure, CVA, palpatations, mental health, musculoskeletal)? @ -Differential Musculoskeletal Muscular strain, contusion, ligament sprain, fracture, arthritis, septic arthritis, bursitis, cellulitis, muscle spasm, nerve compression, DVT, arterial occlusion, herpes zoster, electrolyte abnormality, tumor.... This is not meant to be in all inclusive list EKG interpreted by me (3pts min.). @ -As above X-rays interpreted by me (1pt min.). @ -Chest x-ray shows no trauma left shoulder. Questionable fracture of the left second rib Knee x-ray shows no acute trauma to the left knee. Mild osteoarthritis of the medial and patellofemoral compartments CT interpreted by me (1pt min.). @ -CT shows no acute CT abnormality within the chest. Question mild stranding in the left anterior chest wall fat may reflect minor contusion U/S interpreted by me (1pt. min.). @ -None done What testing was considered but not performed or refused? (CT, X-rays, U/S, labs)? Why? @ -None What meds were considered but not given or refused? Why? @ -None Did you discuss the management of the patient with other professionals (professionals i.e. , PA, ROUTE DELIVERY MANAGER, lab, RT, psych nurse, social services technician, pipe setter, teacher, national service officer, medical case manager)? Give summary @ -No Was smoking cessation discussed for >3mins.? @ -No Was critical care preformed (if so, how long)? @ -No Were there social determinants of health that impacted care today? How? (Homelessness, low income, unemployed, alcoholism, drug addiction, transportation, low edu. Level, literacy, decrease access to med. care, nursing home, rehab)? @ -No Was there de-escalation of care discussed even if they declined (Discuss DNR or withdrawal of care, Hospice)? DNR status @ -No What co-morbidities impacted this encounter? (DM, HTN, Smoking, COPD, CAD, Cancer, CVA, ARF, Chemo, Hep., AIDS, mental health diagnosis, sleep apnea, morbid obesity)? @ -None Was patient admitted / discharged? Hospital course, mention meds given and route, prescriptions, significant lab abnormalities, going to OR and other pertinent info. @ -48-year-old female presenting for evaluation or slipping and falling in the shower having pain to the left shoulder and knee. History and physical examination are conducted. X-rays show questionable second rib fracture with no other acute process. CT shows questionable contusion but no other acute process of the chest. Patient is educated on today's findings. Educated on supportive management for rib contusion including deep breathing and lidocaine patches as needed. Discharged. Follow-up with PCP. Report back to ER with any new or worsening symptoms. Discussed return parameters and answered all questions. Patient conveyed verbal understanding and agreed to the plan. I discussed this case in detail with my attending Dr. White Undiagnosed new problem with uncertain prognosis? @ -No Drug Therapy requiring intensive monitoring for toxicity (Heparin, Nitro, Insulin, Cardizem)? @ -No Were any procedures done? @ -No Diagnosis/symptom? @ -Rib contusion Acute, or Chronic, or Acute on Chronic? @ -Acute Uncomplicated (without systemic symptoms) or Complicated (systemic symptoms)? @ -uncomplicated Side effects of treatment? @ -No Exacerbation, Progression, or Severe Exacerbation? @ -No Poses a threat to life or bodily function? How? (Chest pain, [place], [place], pneumonia, PE, COPD, DKA, ARF, appy, cholecystitis, CVA, Diverticulitis, Homicidal, Suicidal, threat to staff... and all critical care pts) @ -Unlikely Disposition Clinical Impression: Shoulder injury, Rib contusion Disposition: HOME SELF-CARE Condition: Good Instructions (If sedation given, give patient instructions): Rib Contusion (ED) Additional Instructions: Follow-up with PCP. Report back to ER with any new or worsening symptoms. Take Motrin Tylenol and [id number] lidocaine patches as needed. Is patient prescribed a controlled substance at d/c from ED?: No Referrals: Juanjose Good MD [Primary Care Provider] - 1-2 days Time of Disposition: 18:31
--- NOTE | 2024-04-04 13:53 | XR ---
Left shoulder. HISTORY: Fall. COMPARISON: None. FINDINGS: There is no fracture of the left shoulder and no shoulder dislocation. There is a questionable fracture of the left second rib. IMPRESSION: 1. No trauma to left shoulder. 2 questionable fracture of the left second rib. [facility], Workstation: [facility], 04/04/2024 1:51 PM
--- NOTE | 2024-04-04 13:55 | XR ---
Left knee history: Fall. COMPARISON: 11/07/2023. TECHNIQUE: 3 views left knee were obtained. FINDINGS: There is no fracture, dislocation or focal intraosseous abnormality. There is mild narrowing of the m edial and patellofemoral compartments consistent mild osteoarthritis. Soft tissues unremarkable. IMPRESSION: 1. No acute trauma to the left knee. 2. 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 [facility], , 04/04/2024 1:53 PM
[2024-04-04] MEDS ORDERED: RX INFO: IV CONTRAST WAS GIVEN 1 EACH MISC MISCELLANE PRN (14:18)
--- NOTE | 2024-04-04 18:02 | CT ---
EXAMINATION TYPE: CT chest w con CT DLP: 622.2 mGycm, Automated exposure control for dose reduction was used. DATE OF EXAM: 04/04/2024 3:44 PM COMPARISON: Same-day shoulder x-rays . CLINICAL INDICATION:Female, 48 years old with history of 2nd rib fracture; PHH, 2nd rib fracture TECHNIQUE: Multiple axial images were obtained through the chest. Sagittal and coronal reformats were created for review. Contrast used:100ml mL of Isovue 300 with IV Contrast (None if empty) Oral contrast used: (None if empty) FINDINGS: LUNGS/ PLEURA: The lung parenchyma appears unremarkable. AIRWAY: Central airways are patent. LOWER NECK: No significant findings. MEDIASTINUM: No enlarged nodes by CT size criteria. No hematoma or pneumomediastinum. HEART: Normal heart size. Grossly preserved enhancement of the chambers. No pericardial effusion. VASCULATURE: Appears within normal limits. Ascending aorta is 2.7 CM, descending is 2.1 CM. No disse ction. Pulmonary trunk measures 2.2 CM. Pulmonary trunk is normal in size. Grossly preserved enhancement of the pulmonary arteries, in the limits of non-CTA exam. SOFT TISSUES/LYMPH NODES: No soft tissue hematoma of any size is identified. Question mild stranding in the left anterior chest wall fat may reflect minor contusion. UPPER ABDOMEN: No significant findings. MUSCULOSKELETAL: No displaced or deforming rib fracture. Other visualized osseous structures appear i ntact. Mild degenerative changes of the thoracic spine. IMPRESSION: * No acute CT abnormality within the chest. * Question mild stranding in the left anterior chest wall fat may reflect minor contusion. [facility], , 04/04/2024 6:00 PM
[2024-04-04 18:23] VITALS: BP 97/61; PULSE 68; RESP 18; TEMP 98.4
[2024-04-04] MEDS: LIDOCAINE 4% PATCH TOPICAL ONE (18:43)
== END 2024-04-04 18:38 | disposition home or self-care (01) ==
LOC: EC 12:11
CPT/HCPCS: 71260; 99284

== ENCOUNTER → 2024-09-09 | Outpatient (CLI) | payer OTHER | END | disposition home or self-care (01) | LOC: LABWHC1 07:30 | PROVIDERS: ATTEND Internal Medicine Endocrinology, Diabetes & Metabolism | DX: C73 Malignant neoplasm of thyroid gland (principal) | CPT/HCPCS: 36415; 84432; 84443; 86800 ==

== ENCOUNTER → 2024-09-09 | Outpatient (CLI) | payer OTHER ==
--- NOTE | 2024-09-09 07:51 | MM ---
Reason for Exam: Screening (asymptomatic). Last mammogram was performed 1 year(s) and 2 month(s) ago. Patient History: Menarche at age 12. First Full-Term at age 18. Hysterectomy at age 46. Other cancer, age 32. Hormonal Contraceptives, starting at age 18 for 19 years. Maternal aunt had breast cancer, age 56. Mother had breast cancer, age 58. Risk Values: Nora 5 year model risk: 1.7%. NCI Lifetime model risk: 16.3%. Prior Study Comparison: 12/14/2020 Bilateral Screening Mammogram, [facility]. 05/17/2022 Bilateral MG 3D screening mammo w/cad, [facility]. 07/11/2023 Bilateral MG 3D screening mammo w/cad, [facility]. Tissue Density: There are scattered areas of fibroglandular density. Findings: Analyzed By CAD. There is no suspicious group of microcalcifications or new suspicious mass in either breast. Overall Assessment: Negative, BI-RAD 1 Management: Screening Mammogram of both breasts in 1 year. Patient should continue monthly self-breast exams. A clinical breast exam by your physician is recommended on an annual basis. This exam should not preclude additional follow-up of suspicious palpable abnormalities. Note on Nora scores and lifetime risk: 1. A Nora score greater than 3% is considered moderate risk. If this is the case, consider specialist referral to assess eligibility for a risk reducing agent. 2. If overall lifetime risk for the development of breast cancer is 20% or higher, the patient may qualify for future screening with alternating mammogram and breast MRI. [facility], , 09/09/2024 7:49 AM. Electronically signed and approved by: Lalito Winters M.D. Radiologist
== END | disposition home or self-care (01) ==
LOC: RADMAMWWP 07:02
PROVIDERS: ATTEND Obstetrics & Gynecology
DX: Z12.31 Encounter for screening mammogram for malignant neoplasm of breast (principal); R92.323 Mammographic fibroglandular density, bilateral breasts; Z80.3 Family history of malignant neoplasm of breast; Z92.0 Personal history of contraception
CPT/HCPCS: 77063; 77067

== ENCOUNTER → 2025-02-01 | Outpatient (CLI) | payer OTHER ==
[2025-02-01 15:04] LABS: Basophils # (A) 0.03 X 10*3/uL (0.00-0.10); Basophils % (A) 0.4 %; Eosinophils # (A) 0.11 X 10*3/uL (0.04-0.35); Eosinophils % (A) 1.3 %; HCT 41.3 % (37.2-46.3); HGB 13.2 g/dL (12.0-15.0); Immature Grans, Automated 0.40 %; Lymphocytes # (A) 2.79 X 10*3/uL (0.90-5.00); Lymphocytes % (A) 33.2 %; MCH 28.4 pg (27.0-32.0); MCHC 32.0 g/dL (32.0-37.0); MCV 89.0 FL (80.0-97.0); Monocytes # (A) 0.27 X 10*3/uL (0.20-1.00); Monocytes % (A) 3.2 %; NRBC Per 100 WBC 0 X 10*3/uL (0.00-0.01); Neutrophils # (A) 5.17 X 10*3/uL (1.80-7.70); Neutrophils % (A) 61.5 %; Platelet Count 234 X 10*3/uL (140-440); RBC 4.64 X 10*6/uL (4.10-5.20); RDW 13.3 % (11.5-14.5); WBC 8.40 X 10*3/uL (4.50-10.00)
[2025-02-01 15:21] LABS: Anion Gap 12.30 mmol/L (4.00-12.00); BUN/Creat Ratio 12.25 Ratio (12.00-20.00); Blood Urea Nitrogen 9.8 mg/dL (9.0-27.0); Calcium 8.8 mg/dL (8.7-10.3); Carbon Dioxide 24.7 mmol/L (21.6-31.8); Chloride 104 mmol/L (96-109); Glucose 132 mg/dL (70-110); Potassium 4.2 mmol/L (3.5-5.5); Sodium 141 mmol/L (135-145)
[2025-02-01 16:51] LABS: INR 0.97 sec (0.93-1.11); Prothrombin Time 11.1 sec (9.9-11.9)
== END | disposition home or self-care (01) ==
LOC: LABWHC1 09:26
PROVIDERS: ATTEND Orthopaedic Surgery
DX: Z01.812 Encounter for preprocedural laboratory examination (principal); Z22.322 Carrier or suspected carrier of Methicillin resistant Staphylococcus aureus; M17.12 Unilateral primary osteoarthritis, left knee
CPT/HCPCS: 80048; 85025; 85610; 87070